=== PATIENT | male | born 1960 | race Caucasian/White ===

== ENCOUNTER 2019-08-30 19:30 | Emergency (ER) | payer OTHER ==
--- OUTSIDE RECORDS SUMMARY | 2019-08-30 19:33 | XMS REPORT ---
:1960 Author Organization [facility] Address [address] [place] [address] Care Team Providers Name Role Phone DR ALIYAH PACKER Unavailable Unavailable Problems This patient has no known problems. Allergies, Adverse Reactions, Alerts This patient has no known allergies or adverse reactions. Medications This patient has no known medications. Encounters Start End Encounter Admission Attending Care Care Encounter Date/Time Date/Time Type Type Clinicians Facility Department ID 2017-12-10 2017-12-11 Outpatient C BIRDIE C SURG [id number] 07:47:00 12:58:00 ALIYAH Results Test Description Test Time Test Comments Text Results Atomic Results Result Comments BASIC METABOLIC PANEL 2017-12-11 08:26:00 Test Item Value Reference Range Comments GLUCOSE (test code=06D) 171 mg/dL 75-100 SODIUM (test code=01A) 137 mmol/L 136-145 POTASSIUM (test code=01B) 4.1 mmol/L 3.6-5.1 CHLORIDE (test code=04A) 104 mmol/L 98-107 CO2 (test code=02A) 27 mmol/L 22-32 ANION GAP (test code=ANG) 10.1 mmol/L BUN (test code=05D) 14 mg/dL 7-18 CREATININE (test code=03E) 1.0 mg/dL 0.7-1.3 BUN/CREA (test code=BCR) 14 12-20 CALCIUM (test code=09D) 9.4 mg/dL 8.3-9.5 CBC (INCLUDES AUTOMATED DIFFERENTIAL)2017-12-11 08:13:00 Test Item Value Reference Range Comments WBC (test code=WBC) 15.1 10\S\3/uL 4.5-11.0 RBC (test code=RBC) 5.16 10\S\6/uL 4.20-5.60 HGB (test code=HBG) 14.5 g/dL 14.0-18.0 HCT (test code=HCT) 43.5 % 35.0-46.0 MCV (test code=MCV) 84.3 fL 80.0-94.0 MCH (test code=MCH) 28.1 pg 27.0-31.0 MCHC (test code=MCHC) 33.3 g/dL 32.0-36.0 RDW (test code=RDW) 13.2 % 11.5-14.5 PLT (test code=PLT) 251 10\S\3/uL 130-400 MPV (test code=MPV) 11.8 fL 9.4-12.4 NEUTROP # (test code=NE#) 13.6 10\S\3/uL 2.0-8.0 LYMPH # (test code=LY#) 0.6 10\S\3/uL 1.2-4.0 MONOCYTE # (test code=MO#) 0.8 10\S\3/uL 0.0-1.1 EOSINOPH # (test code=EO#) 0.0 10\S\3/uL 0.0-0.7 BASOPHIL # (test code=BA#) 0.0 10\S\3/uL 0.0-0.3 IG # (test code=IG#) 0.07 10\S\3/uL 0.00-0.06 NRBC # (test code=NRBC#) 0.00 10\S\3/uL 0.00-0.01 NEUTROPH % (test code=NE%) 90.0 % 35.0-73.0 LYMPH % (test code=LY%) 4.2 % 20.0-55.0 MONO % (test code=MO%) 5.2 % 2.5-10.0 EOSINOPH % (test code=EO%) 0.0 % 0.0-5.0 BASOPHIL % (test code=BA%) 0.1 % 0.0-2.0 IG % (test code=IG%) 0.5 % 0.0-0.8 NRBC% (test code=NRBC%) 0.0 % 0.0-0.2 MANDIFF (test code=MDIFF) NO NO RBC MORPH (test code=RBCMOR) NORMAL XR C-ARM>1HR W IMAGES*HSE*2017-12-10 11:59:11Clinical history: Neck pain unspecified.Location: D4.Findings: 6 spot fluoroscopic intraoperative images are submitted. The imagesshow ACDF at C4-C7. Please refer to the operative report. A total of 9 secondsintraoperative fluoroscopy was utilized.Impression: Intraoperative fluoroscopy.COMPREHENSIVE METABOLIC [id number] 17:22:00 Test Item Value Reference Range Comments GLUCOSE (test code=06D) 96 mg/dL 75-100 SODIUM (test code=01A) 139 mmol/L 136-145 POTASSIUM (test code=01B) 4.0 mmol/L 3.6-5.1 CHLORIDE (test code=04A) 107 mmol/L 98-107 CO2 (test code=02A) 27 mmol/L 22-32 ANION GAP (test code=ANG) 9.0 mmol/L BUN (test code=05D) 15 mg/dL 7-18 CREATININE (test code=03E) 1.0 mg/dL 0.7-1.3 BUN/CREA (test code=BCR) 15 12-20 CALCIUM (test code=09D) 8.7 mg/dL 8.3-9.5 BILI TOTAL (test code=11A) 1.4 mg/dL 0.2-1.0 PROTEIN (test code=07D) 7.8 g/dL 6.4-8.2 ALBUMIN (test code=08D) 4.0 g/dL 3.5-4.8 GLOBULIN (test code=GLB) 3.8 g/dL 1.5-3.8 ALB/GLOB (test code=AGRR) 1.1 1.0-2.6 ALK PHOS (test code=35A) 57 IU/L 42-121 AST (test code=30A) 18 IU/L <=42 ALT (test code=31A) 26 IU/L <=78 PRO TIME AND [id number] 17:13:00 Test Item Value Reference Range Comments PT (test code=TT) 11.5 s 9.8-13.6 INR (test code=INR) 1.0 INRH (test code=INRH) SUGGESTED THERAPEUTIC RANGE FOR INR: 2.5 - 3.5 For Patients with Prosthetic Valves or Patients with recurrent Thromboembolic Events 2.0 - 3.0 For Most Other Applications PTT (test code=PTT) 29.2 s 20.2-38.0 PTTH (test code=PTTH) To monitor the effectiveness of heparin, we offer the Anti-Xa (Heparin Assay). It can be used for either unfractionated or LMW Heparin. Order Code is ANTI-XA CBC (INCLUDES AUTOMATED DIFFERENTIAL)2017-12-05 17:11:00 Test Item Value Reference Range Comments WBC (test code=WBC) 6.8 10\S\3/uL 4.5-11.0 RBC (test code=RBC) 5.22 10\S\6/uL 4.20-5.60 HGB (test code=HBG) 14.6 g/dL 14.0-18.0 HCT (test code=HCT) 44.0 % 35.0-46.0 MCV (test code=MCV) 84.3 fL 80.0-94.0 MCH (test code=MCH) 28.0 pg 27.0-31.0 MCHC (test code=MCHC) 33.2 g/dL 32.0-36.0 RDW (test code=RDW) 13.2 % 11.5-14.5 PLT (test code=PLT) 238 10\S\3/uL 130-400 MPV (test code=MPV) 11.3 fL 9.4-12.4 NEUTROP # (test code=NE#) 4.2 10\S\3/uL 2.0-8.0 LYMPH # (test code=LY#) 1.6 10\S\3/uL 1.2-4.0 MONOCYTE # (test code=MO#) 0.8 10\S\3/uL 0.0-1.1 EOSINOPH # (test code=EO#) 0.1 10\S\3/uL 0.0-0.7 BASOPHIL # (test code=BA#) 0.0 10\S\3/uL 0.0-0.3 IG # (test code=IG#) 0.02 10\S\3/uL 0.00-0.06 NRBC # (test code=NRBC#) 0.00 10\S\3/uL 0.00-0.01 NEUTROPH % (test code=NE%) 61.8 % 35.0-73.0 LYMPH % (test code=LY%) 24.1 % 20.0-55.0 MONO % (test code=MO%) 11.7 % 2.5-10.0 EOSINOPH % (test code=EO%) 1.5 % 0.0-5.0 BASOPHIL % (test code=BA%) 0.6 % 0.0-2.0 IG % (test code=IG%) 0.3 % 0.0-0.8 NRBC% (test code=NRBC%) 0.0 % 0.0-0.2 MANDIFF (test code=MDIFF) NO NO RBC MORPH (test code=RBCMOR) NORMAL
--- NOTE | 2019-08-30 20:40 | ER ---
Nurse's Notes [facility] Name: Danilo Noguera Jr Age: 59 yrs Sex: Male : 1960 Arrival Date: 08/30/2019 Time: 19:33 Bed 16 Private MD: Diagnosis: Other chronic pain Presentation: 08/30 19:36 Presenting complaint: Patient states: "I have a pinched nerve they diagnosed me with, aj1 Im going to Dr. Kaye, Im taking hydrocodone from him but the pills aren't helping me. Saturday I pulled something and I'm having a hard time stranding up, and my leg feels like Im standing on a nail on the time, my leg feels like its on fire all the time. Transition of care: patient was not received from another setting of care. Onset of symptoms was August 2019. Risk Assessment: Do you want to hurt yourself or someone else? Patient reports no desire to harm self or others. Initial Sepsis Screen: Does the patient meet any 2 criteria? No. Patient's initial sepsis screen is negative. Does the patient have a suspected source of infection? No. Patient's initial sepsis screen is negative. Care prior to arrival: None. 19:36 Method Of Arrival: Ambulatory aj1 19:36 Acuity: CHRISTA 3 aj1 Triage Assessment: 19:38 General: Appears in no apparent distress. comfortable, Behavior is calm, cooperative, aj1 appropriate for age. Pain: Pain currently is 9 out of 10 on a pain scale. Neuro: Level of Consciousness is awake, alert, obeys commands. Cardiovascular: Patient's skin is warm and dry. Respiratory: Airway is patent Respiratory effort is even, unlabored, Respiratory pattern is regular, symmetrical. Musculoskeletal: Range of motion: intact in all extremities. Historical: - Allergies: 19:38 No Known Allergies; aj1 - Home Meds: 19:38 Hydrocodone-Acetaminophen Oral [Active]; Lisinopril Oral [Active]; meloxicam oral oral aj1 [Active]; - PMHx: 19:38 Asbestos inhalation exposure; Hypertension; pinched nerve; aj1 - Immunization history:: Flu vaccine is up to date. - Coronavirus screen:: The patient has NOT traveled to [place], [place], or [place] in the past 14 days. - Social history:: Smoking status: Patient/guardian denies using tobacco. - Ebola Screening: : Patient denies travel to an Ebola-affected area in the 21 days before illness onset. Screenin:00 Abuse screen: Denies threats or abuse. Nutritional screening: No deficits noted. vc Tuberculosis screening: No symptoms or risk factors identified. Fall Risk None identified. Assessment: 20:00 General: Appears in no apparent distress. uncomfortable, Behavior is calm, cooperative, vc appropriate for age. Pain: Complains of pain in RIGHT MIDDLE OF FOOT, Pain radiates to right leg. Neuro: Level of Consciousness is awake, alert, obeys commands, Oriented to person, place, time, situation, Appropriate for age. Cardiovascular: Patient's skin is warm and dry. Respiratory: Respiratory effort is even, unlabored, Respiratory pattern is regular, symmetrical. GI: No signs and/or symptoms were reported involving the gastrointestinal system. : No signs and/or symptoms were reported regarding the genitourinary system. EENT: No signs and/or symptoms were reported regarding the EENT system. Derm: Skin temperature is warm. Musculoskeletal: Range of motion: intact in all extremities. 21:00 Reassessment: Patient and/or family updated on plan of care and expected duration. Pain vc level reassessed. Patient is alert, oriented x 3, equal unlabored respirations, skin warm/dry/pink. PATIENT WAITING FOR RIDE HOME. 21:50 Reassessment: Patient and/or family updated on plan of care and expected duration. Pain vc level reassessed. Patient is alert, oriented x 3, equal unlabored respirations, skin warm/dry/pink. PATIENT STILL WAITING FOR RIDE HOME Patient states feeling better. Patient states symptoms have improved. Vital Signs: 19:38 BP 140 / 100; Pulse 80; Resp 18; Temp 97.7; Pulse Ox 97% on R/A; Weight 97.52 kg (R); aj1 Height 5 ft. 9 in. (175.26 cm) (R); Pain 9/10; 20:30 BP 145 / 98; Pulse 85; Pulse Ox 98% on R/A; vc 21:30 BP 142 / 99; Pulse 83; Pulse Ox 98% on R/A; vc 19:38 Body Mass Index 31.75 (97.52 kg, 175.26 cm) aj1 ED Course: 19:33 Patient arrived in ED. cf2 19:37 Triage completed. aj1 19:38 Arm band placed on Patient placed in an exam room. aj1 19:46 Jesica Arevalo, RN is Primary Nurse. vc 19:58 Junior Ku MD is Attending Physician. tw4 20:00 Patient has correct armband on for positive identification. Bed in low position. Call vc light in reach. 20:00 Pulse ox on. NIBP on. vc 21:00 No provider procedures requiring assistance completed. vc 21:00 Patient did not have IV access during this emergency room visit. vc Administered Medications: 20:54 Drug: traMADol 50 mg {Note: RASS 0.} Route: PO; ea 21:30 Follow up: Response: No adverse reaction; Pain is decreased vc 20:55 Drug: TORadol 60 mg Route: IM; Site: right gluteus; ea 21:30 Follow up: Response: No adverse reaction vc Outcome: 20:40 Discharge ordered by . tw4 22:15 Discharged to home ambulatory, with friend. vc 22:15 Condition: good 22:15 Discharge instructions given to patient, Instructed on discharge instructions, follow up and referral plans. medication usage, Demonstrated understanding of instructions, follow-up care, medications, Prescriptions given X 1. 22:16 Patient left the ED. vc Signatures: Erin Merino, RN RN aj1 Kia Cadet, RN RN Junior Marquez MD MD 4 Cabrera Maher 2 Jesica Arevalo, RN RN vc Corrections: (The following items were deleted from the chart) 23:34 21:00 Reassessment: PATIENT WAITING FOR RIDE HOME. vc vc 23:34 21:50 Reassessment: PATIENT STILL WAITING FOR RIDE HOME vc vc
[2019-08-30] MEDS ORDERED: KETOROLAC 30 MG/ML INJ ONE (20:44)
[2019-08-30] MEDS ORDERED: TRAMADOL HCL 50 MG TAB ONE (20:45)
--- NOTE | 2019-08-30 22:17 | EDPHYS ---
Physician Documentation [facility] Name: Danilo Noguera Jr Age: 59 yrs Sex: Male : 1960 Arrival Date: 08/30/2019 Time: 19:33 Bed 16 Private MD: ED Physician Junior Ku HPI: 08/30 21:59 This 59 yrs old Male presents to ER via Ambulatory with complaints of Back tw4 Pain, Foot Pain, Leg Pain. 21:59 The patient presents with pain that is acute. The symptoms are located in the right low tw4 back. Onset: The symptoms/episode began/occurred 1 month(s) ago. The pain radiates to the right hamstring. Associated signs and symptoms: The patient has no apparent associated signs or symptoms. The problem was sustained when bending over, from twisting. Modifying factors: The patient symptoms are alleviated by rest, the patient symptoms are aggravated by any movement. Severity of symptoms: At their worst the symptoms were moderate, in the emergency department the symptoms are unchanged. The patient has experienced similar episodes in the past, chronically. Historical: - Allergies: 19:38 No Known Allergies; aj1 - Home Meds: 19:38 Hydrocodone-Acetaminophen Oral [Active]; Lisinopril Oral [Active]; meloxicam oral oral aj1 [Active]; - PMHx: 19:38 Asbestos inhalation exposure; Hypertension; pinched nerve; aj1 - Immunization history:: Flu vaccine is up to date. - Coronavirus screen:: The patient has NOT traveled to [place], [place], or [place] in the past 14 days. - Social history:: Smoking status: Patient/guardian denies using tobacco. - Ebola Screening: : Patient denies travel to an Ebola-affected area in the 21 days before illness onset. ROS: 21:59 Constitutional: Negative for fever, chills, and weight loss, Eyes: Negative for injury, tw4 pain, redness, and discharge, Cardiovascular: Negative for chest pain, palpitations, and edema, Respiratory: Negative for shortness of breath, cough, wheezing, and pleuritic chest pain, Abdomen/GI: Negative for abdominal pain, nausea, vomiting, diarrhea, and constipation, Back: Negative for injury and pain, MS/Extremity: Negative for injury and deformity, Skin: Negative for injury, rash, and discoloration. Exam: 21:59 Constitutional: This is a well developed, well nourished patient who is awake, alert, tw4 and in no acute distress. Head/Face: Normocephalic, atraumatic. Cardiovascular: Regular rate and rhythm with a normal S1 and S2. No gallops, murmurs, or rubs. Normal PMI, no JVD. No pulse deficits. Respiratory: Lungs have equal breath sounds bilaterally, clear to auscultation and percussion. No rales, rhonchi or wheezes noted. No increased work of breathing, no retractions or nasal flaring. Abdomen/GI: Soft, non-tender, with normal bowel sounds. No distension or tympany. No guarding or rebound. No evidence of tenderness throughout. Back: No spinal tenderness. No costovertebral tenderness. Full range of motion. MS/ Extremity: Pulses equal, no cyanosis. Neurovascular intact. Full, normal range of motion. Neuro: Awake and alert, GCS 15, oriented to person, place, time, and situation. Cranial nerves II-XII grossly intact. Motor strength 5/5 in all extremities. Sensory grossly intact. Cerebellar exam normal. Normal gait. Vital Signs: 19:38 BP 140 / 100; Pulse 80; Resp 18; Temp 97.7; Pulse Ox 97% on R/A; Weight 97.52 kg (R); aj1 Height 5 ft. 9 in. (175.26 cm) (R); Pain 9/10; 20:30 BP 145 / 98; Pulse 85; Pulse Ox 98% on R/A; vc 21:30 BP 142 / 99; Pulse 83; Pulse Ox 98% on R/A; vc 19:38 Body Mass Index 31.75 (97.52 kg, 175.26 cm) aj MDM: 19:58 Patient medically screened. tw4 Administered Medications: 20:54 Drug: traMADol 50 mg {Note: RASS 0.} Route: PO; ea 21:30 Follow up: Response: No adverse reaction; Pain is decreased vc 20:55 Drug: TORadol 60 mg Route: IM; Site: right gluteus; ea 21:30 Follow up: Response: No adverse reaction vc Disposition: 08/30/19 20:40 Discharged to Home. Impression: Other chronic pain. - Condition is Stable. - Discharge Instructions: Chronic Pain. - Prescriptions for Tramadol 50 mg Oral Tablet - take 1 tablet by ORAL route every 8 hours as needed; 12 tablet. - Medication Reconciliation Form, Thank You Letter, Antibiotic Education, Prescription Opioid Use form. - Follow up: Private Physician; When: Upon discharge from the Emergency Department; Reason: Recheck today's complaints, Continuance of care, Re-evaluation by your physician. - Problem is an ongoing problem. - Symptoms are unchanged. Signatures: Erin Merino RN RN aj1 Kia Cadet RN RN ea Wadley, Terrence, MD MD tw4 Jesica Arevalo RN RN vc Corrections: (The following items were deleted from the chart) 22:16 20:40 08/30/2019 20:40 Discharged to Home. Impression: Other chronic pain. Condition is vc Stable. Forms are Medication Reconciliation Form, Thank You Letter, Antibiotic Education, Prescription Opioid Use. Follow up: Private Physician; When: Upon discharge from the Emergency Department; Reason: Recheck today's complaints, Continuance of care, Re-evaluation by your physician. Problem is an ongoing problem. Symptoms are unchanged. tw4
[2019-08-30 22:24] VITALS: BP 140/100; TEMP 97.7; O2SAT 97
== END 2019-08-30 22:16 | disposition home or self-care (01) ==
LOC: ER 19:30
DX: G89.29 Other chronic pain (principal); I10 Essential (primary) hypertension
CPT/HCPCS: 96372; 99283

== ENCOUNTER 2023-05-05 17:49 | Emergency (ER) | payer OTHER ==
--- OUTSIDE RECORDS SUMMARY | 2023-05-05 17:53 | XMS REPORT | Continuity of Care Document ---
:1960 Author Organization [facility] t Address [address] [facility] [address] [place] [address] Care Team Providers Name Role Phone Pcp, Patient Does Not Have A Primary Care Physician +1-000-0 00-0000 MO LOOMIS Attending Clinician Unavailable RADIOLOGY Attending Clinician Unavailable Radiology Attending Clinician Unavailable Doctor Unassigned, [place] Attending Clinician Unavailable Team, [facility] Attending Clinician Unavailadrian Resendez MD, Kobe Attending Clinician ZAHRA YOUNGER Attending Clinician Unavailable ZAHRA YOUNGER Attending Clinician Unavailable Mo Loomis MD K.HHarsah Attending Clinician 2, [facility] Attending Clinician Unavailable DICK CARVAJAL Attending Clinician Unavailable Pob, [facility] Main Attending Clinician Unavailable BRETT SHETH Attending Clinician Unavailable Oscar Plunkett MD Attending Clinician OSCAR PLUNKETT Attending Clinician Unavailable DAVID DRUMMOND Attending Clinician Unavailable DR ALIYAH PACKER Attending Clinician Unavailable PERCY HAHN Admitting Clinician Unavailable ZAHRA YOUNGER Admitting Clinician Unavailable OSCAR PLUNKETT Admitting Clinician Unavailable DR ALIYAH PACKER Admitting Clinician Unavailable Payers Payer Name Policy Type Policy Number Effective Date Expiration Date [place] [facility] [place] A [id number] 2018 \T\ B 00:00:00 Problems Condition Condition Condition Status Onset Resolution Last Treating Co mments Source Name Details Category Date Date Treatment Clinician Date History of History of Disease Active U nivers fusion of fusion of 1-19 ity of cervical cervical 00:00: [place] spine spine 00 Medical Branch Chronic Chronic Disease Active Univers pain pain 1-19 ity of 00:00: [address] Branch Neuropathi Neuropathi Disease Active U nivers c pain c pain 6-10 ity of 00:00: [address] Branch Incontinen Incontinen Disease Active M ethodi ce of ce of 11-23 st bowel bowel 00:00: Hospita 00 l Urinary Urinary Disease Active Methodi frequency frequency 05 st 00:00: Hospita 00 l Post-concu Post-concu Disease Active M ethodi ssion ssion [address] [facility] headache headache 00:00: Hospit a 00 l Neck pain Neck pain Disease Active [facility] 3-08 st 00:00: Hospita 00 l Bilateral Bilateral Disease Active [facility] low back low back [address] [facility] pain with pain with 00:00: Hosp abhinav left-sided left-sided 00 l sciatica sciatica Anxiety Anxiety Disease Active [facility] 3-08 st 00:00: Hospita 00 l Lumbar Lumbar Disease Active Methodi radiculopa radiculopa 3-08 st thy thy 00:00: Hospita 00 l Essential Essential Disease Active [facility] hypertensi hypertensi 3-08 st on on 00:00: Hospita 00 l Insomnia Insomnia Disease Active Metho di [address] st 00:00: Hospita 00 l Essential Essential Disease Active Uni vers hypertensi hypertensi 1-31 it y of on on 00:00: [address] Allergies, Adverse Reactions, Alerts Allergy Allergy Status Severity Reaction(s) Onset Inactive Treating Comm ents Source Name Type Date Date Clinician NO KNOWN Drug Active Univers ALLERGIE Class ity of S [facility] Family History Family Member Diagnosis Comments Start Date Stop Date Source Natural father [facility] Natural mother Diabetes [facility] Natural mother Stroke [facility] Social History Social Habit Start Date Stop Date Quantity Comments Source History of tobacco Cigarette Smoker [facility] Sexual orientation [facility] Exposure to 2022-09-28 2022-10-08 Not sure University of SARS-CoV-2 (event) 00:00:00 13:57:00 [facility] Tobacco use and 2022-04-19 2022-04-19 Smokeless [facility] exposure 00:00:00 00:00:00 tobacco non-user Hospital Alcohol intake 2022-04-19 2022-04-19 Current [facility] 00:00:00 00:00:00 non-drinker of Hospital alcohol (finding) History of Social 2022-04-19 2022-04-[address] function 00:00:00 00:00:00 Hospital Sex Assigned At [birth year] [facility] 00:00:00 00:00:00 Hospital Smoking Status Start Date Stop Date Source Ex-smoker 2022-08-09 00:00:00 2022-08-09 00:00:00 Universi ty of [facility] Never smoked tobacco [facility] Medications Ordered Filled Start Stop Current Ordering Indication Dosage Frequency Signature Comments Components Source Medication Medication Date Date Medication? Clinician (SIG) Name Name rizatriptan Yes [id number] TAKE 1 [facility] (MAXALT) 10 9-[address] MG tablet 00:00: MOUTH ONCE Ho spita 00 DAILY l NEEDED FOR MIGRAINE HEADACHE rizatriptan 2022- No [id number] TAKE 1 [facility] (MAXALT) 10 8- 09-[address] MG tablet 00:00: 00:00 MOUTH ONCE H ospita 00 :00 DAILY l NEEDED FOR MIGRAINE HEADACHE rizatriptan 2022- No [id number] TAKE 1 [facility] (MAXALT) 10 01-06- TABLET BY st MG tablet 00:00: 00:00 MOUTH ONCE H ospita 00 :00 DAILY l NEEDED FOR MIGRAINE HEADACHE rizatriptan 2022- No [id number] TAKE 1 [facility] (MAXALT) 10 12-[address] MG tablet 00:00: 00:00 MOUTH ONCE H ospita 00 :00 DAILY l NEEDED FOR MIGRAINE HEADACHE atorvastati Yes [id number] 20mg Take 1 Univers n 20 mg 3-20 tablet by ity of tablet 00:00: mouth at [place] 00 bedtime. Medical Branch lisinopriL 2023-0 Yes [id number] 20mg Take 1 U nivers 20 mg 3-20 tablet by ity of tablet 00:00: mouth in [place] 00 the Medical morning Branch and 1 tablet in the evening. atorvastati 2022-0 Yes [id number] 20mg Take 1 Univers n 20 mg 3-20 tablet by ity of tablet 00:00: mouth at [place] [address] bedtime. Medical Branch lisinopriL 2022-0 Yes [id number] 20mg Take 1 U nivers 20 mg 3-20 tablet by ity of tablet 00:00: mouth in [place] 00 the Medical morning Branch and 1 tablet in the evening. atorvastati 2022-0 Yes [id number] 20mg Take 1 Univers n 20 mg 3-20 tablet by ity of tablet 00:00: mouth at [place] [address] bedtime. Medical Branch lisinopriL 2022-0 Yes [id number] 20mg Take 1 U nivers 20 mg 3-20 tablet by ity of tablet 00:00: mouth in [place] 00 the Medical morning Branch and 1 tablet in the evening. atorvastati 2022-0 Yes [id number] 20mg Take 1 Univers n 20 mg 3-20 tablet by ity of tablet 00:00: mouth at [place] [address] bedtime. Medical Branch lisinopriL 2022-0 Yes [id number] 20mg Take 1 U nivers 20 mg 3-20 tablet by ity of tablet 00:00: mouth in [place] 00 the Medical morning Branch and 1 tablet in the evening. atorvastati 2022-0 Yes [id number] 20mg Take 1 Univers n 20 mg 3-20 tablet by ity of tablet 00:00: mouth at [place] [address] bedtime. Medical Branch lisinopriL 2022-0 Yes [id number] 20mg Take 1 U nivers 20 mg 3-20 tablet by ity of tablet 00:00: mouth in [place] 00 the Medical morning Branch and 1 tablet in the evening. atorvastati 2022-0 Yes [id number] 20mg Take 1 Univers n 20 mg 3-20 tablet by ity of tablet 00:00: mouth at [place] [address] bedtime. Medical Branch lisinopriL 2022-0 Yes [id number] 20mg Take 1 U nivers 20 mg 3-20 tablet by ity of tablet 00:00: mouth in [place] 00 the Medical morning Branch and 1 tablet in the evening. atorvastati 2022-0 Yes [id number] 20mg Take 1 Univers n 20 mg 3-20 tablet by ity of tablet 00:00: mouth at [place] [address] bedtime. Medical Branch lisinopriL 2022-0 Yes [id number] 20mg Take 1 U nivers 20 mg 3-20 tablet by ity of tablet 00:00: mouth in [place] [address] the Medical morning Branch and 1 tablet in the evening. atorvastati 2022-0 Yes [id number] 20mg Take 1 Univers n 20 mg 3-20 tablet by ity of tablet 00:00: mouth at [place] [address] bedtime. Medical Branch lisinopriL 2022-0 Yes [id number] 20mg Take 1 U nivers 20 mg 3-20 tablet by ity of tablet 00:00: mouth in [place] [address] the Medical morning Branch and 1 tablet in the evening. ATORVASTATI 2022-0 Yes [id number] 20mg TAKE 1 Univers N 20 mg 2-09 TABLET BY ity of tablet 00:00: MOUTH AT [place] 00 BEDTIME Medical Branch ATORVASTATI 2022-0 Yes [id number] 20mg TAKE 1 Univers N 20 mg 2-09 TABLET BY ity of tablet 00:00: MOUTH AT [place] 00 BEDTIME Medical Branch ATORVASTATI 2022-0 Yes [id number] 20mg TAKE 1 Univers N 20 mg 2-09 TABLET BY ity of tablet 00:00: MOUTH AT [place] [facility] ATORVASTATI 2022-0 3- No [id number] 20mg TAKE 1 Univers N 20 mg 2-09 03-20 TABLET BY ity of tablet 00:00: 00:00 MOUTH AT [place] 00 :00 BEDTIME Medical Branch ATORVASTATI 2022-0 3- No [id number] 20mg TAKE 1 Univers N 20 mg 2-09 03-20 TABLET BY ity of tablet 00:00: 00:00 MOUTH AT [place] 00 :00 BEDTIME Medical Branch lisinopriL 2021-0 2- No lisinopril Univers 20 mg 9-12 09-12 20 mg ity of tablet 15:35: 00:00 tablet [place] 49 :00 Medical Branch atorvastati 2021-0 Yes [id number] 20mg Take 1 Univers n 20 mg 9-12 tablet by ity of tablet 00:00: mouth at [place] [address] bedtime. Medical Branch lisinopriL 2-0 Yes [id number] 20mg Take 1 Univers 20 mg 9-12 tablet by ity of tablet 00:00: mouth in [place] 00 the Medical morning Branch and 1 tablet in the evening. atorvastati 2-0 Yes [id number] 20mg Take 1 Univers n 20 mg 9-12 tablet by ity of tablet 00:00: mouth at [place] [address] bedtime. Medical Branch lisinopriL 2021-0 Yes [id number] 20mg Take 1 Univers 20 mg 9-12 tablet by ity of tablet 00:00: mouth in [place] 00 the Medical morning Branch and 1 tablet in the evening. atorvastati 2-0 Yes [id number] 20mg Take 1 Univers n 20 mg 9-12 tablet by ity of tablet 00:00: mouth at [place] [address] bedtime. Medical Branch lisinopriL 2021-0 Yes [id number] 20mg Take 1 Univers 20 mg 9-12 tablet by ity of tablet 00:00: mouth in [place] 00 the Medical morning Branch and 1 tablet in the evening. atorvastati 2021-0 Yes [id number] 20mg Take 1 Univers n 20 mg 9-12 tablet by ity of tablet 00:00: mouth at [place] [address] bedtime. Medical Branch lisinopriL 2021-0 Yes [id number] 20mg Take 1 Univers 20 mg 9-12 tablet by ity of tablet 00:00: mouth in [place] 00 the Medical morning Branch and 1 tablet in the evening. atorvastati 2-0 Yes [id number] 20mg Take 1 Univers n 20 mg 9-12 tablet by ity of tablet 00:00: mouth at [place] [address] bedtime. Medical Branch lisinopriL 2-0 Yes [id number] 20mg Take 1 Univers 20 mg 9-12 tablet by ity of tablet 00:00: mouth in [place] 00 the Medical morning Branch and 1 tablet in the evening. lisinopriL 2022-0 Yes [id number] 20mg Take 1 Univers 20 mg 9-12 tablet by ity of tablet 00:00: mouth in [place] 00 the Medical morning Branch and 1 tablet in the evening. lisinopriL 2022-0 Yes [id number] 20mg Take 1 Univers 20 mg 9-12 tablet by ity of tablet 00:00: mouth in [place] 00 the Medical morning Branch and 1 tablet in the evening. lisinopriL Yes [id number] 20mg Take 1 Univers 20 mg 9-12 tablet by ity of tablet 00:00: mouth in [place] 00 the Medical morning Branch and 1 tablet in the evening. lisinopriL 3- No [id number] 20mg Take 1 Univers 20 mg 9-12 03-20 tablet by ity of tablet 00:00: 00:00 mouth in [place] 00 :00 the Medical morning Branch and 1 tablet in the evening. lisinopriL 2022- No [id number] 20mg Take 1 Univers 20 mg 9-12 03-20 tablet by ity of tablet 00:00: 00:00 mouth in [place] 00 :00 the Medical morning Branch and 1 tablet in the evening. atorvastati 2022- No [id number] 20mg Take 1 Univers n 20 mg 9-12 02-09 tablet by ity of tablet 00:00: 00:00 mouth at [place] 00 :00 bedtime. Medical Branch rizatriptan 2022- No [id number] 10mg Q24H Take 1 [facility] (MAXALT) 10 5-11 05-22 tablet (10 s t MG tablet 00:00: 00:00 mg total) Ho spita 00 :00 by mouth l daily as needed for migraine. atorvastati 2- No [id number] 20mg Take 1 Univers n 20 mg 5-05 09-12 tablet by ity of tablet 00:00: 00:00 mouth at [place] 00 :00 bedtime. Medical Branch gabapentin 2021-0 Yes TAKE 2 Unive rs 300 mg 2-15 CAPSULES ity of capsule 00:00: BY MOUTH [place] [address] THREE Medical TIMES Branch DAILY gabapentin 2021-0 Yes TAKE 2 Unive rs 300 mg 2-15 CAPSULES ity of capsule 00:00: BY MOUTH [address] Medical TIMES [place] DAILY gabapentin 2021-0 Yes TAKE 2 Unive rs 300 mg 2-15 CAPSULES ity of capsule 00:00: BY MOUTH [address] TIMES [place] DAILY gabapentin 2021-0 Yes TAKE 2 Unive rs 300 mg 2-15 CAPSULES ity of capsule 00:00: BY MOUTH [address] Medical TIMES Branch DAILY gabapentin 2022-0 Yes TAKE 2 Unive rs 300 mg 2-15 CAPSULES ity of capsule 00:00: BY [facility] Medical TIMES Branch DAILY gabapentin 2022-0 Yes TAKE 2 Unive rs 300 mg 2-15 CAPSULES ity of capsule 00:00: BY [facility] Medical TIMES Branch DAILY gabapentin 2022-0 Yes TAKE 2 Unive rs 300 mg 2-15 CAPSULES ity of capsule 00:00: BY [facility] Medical TIMES Branch DAILY gabapentin 2022-0 Yes TAKE 2 Unive rs 300 mg 2-15 CAPSULES ity of capsule 00:00: BY [facility] Medical TIMES Branch DAILY gabapentin 2022-0 Yes TAKE 2 Unive rs 300 mg 2-15 CAPSULES ity of capsule 00:00: BY [facility] Medical TIMES Branch DAILY gabapentin 2022-0 Yes TAKE 2 Unive rs 300 mg 2-15 CAPSULES ity of capsule 00:00: BY [facility] Medical TIMES Branch DAILY gabapentin 2022-0 Yes TAKE 2 Unive rs 300 mg 2-15 CAPSULES ity of capsule 00:00: BY [facility] Medical TIMES Branch DAILY gabapentin 2022-0 Yes TAKE 2 Unive rs 300 mg 2-15 CAPSULES ity of capsule 00:00: BY [facility] Medical TIMES Branch DAILY gabapentin 2022-0 Yes TAKE 2 Unive rs 300 mg 2-15 CAPSULES ity of capsule 00:00: BY [facility] Medical TIMES Branch DAILY gabapentin 2022-0 Yes TAKE 2 Unive rs 300 mg 2-15 CAPSULES ity of capsule 00:00: BY [facility] Medical TIMES Branch DAILY gabapentin 2022-0 Yes TAKE 2 Unive rs 300 mg 2-15 CAPSULES ity of capsule 00:00: BY [facility] Medical TIMES Branch DAILY gabapentin 2022-0 Yes TAKE 2 Unive rs 300 mg 2-15 CAPSULES ity of capsule 00:00: BY [facility] Medical TIMES Branch DAILY gabapentin 2022-0 Yes TAKE 2 Unive rs 300 mg 2-15 CAPSULES ity of capsule 00:00: BY [facility] Medical TIMES Branch DAILY gabapentin 2022-0 Yes TAKE 2 Unive rs 300 mg 2-15 CAPSULES ity of capsule 00:00: BY [facility] Medical TIMES Branch DAILY gabapentin 2022-0 2023- No [id number] 600mg [id number] Take 2 [facility] (NEURONTIN) 2-15 02-[id number] 300 mg 00:00: 05:59 3D (600 mg Hospita capsule 00 :00 total) by l mouth 3 (three) times a day. HYDROcodone 2021-0 Yes TAKE 1 Univ ers -acetaminop 2-13 TABLET ity of hen 5-325 00:00: EVERY DAY José Miguel as mg tablet 00 BY ORAL Medical ROUTE Branch NEEDED FOR 28 DAYS. HYDROcodone 2021-0 Yes TAKE 1 Univ ers -acetaminop 2-13 TABLET ity of hen 5-325 00:00: EVERY DAY José Miguel as mg tablet 00 BY ORAL Medical ROUTE Branch NEEDED FOR 28 DAYS. HYDROcodone 2021-0 Yes TAKE 1 Univ ers -acetaminop 2-13 TABLET ity of hen 5-325 00:00: EVERY DAY José [place] as mg tablet 00 BY ORAL Medical ROUTE Branch NEEDED FOR 28 DAYS. HYDROcodone 2021-0 Yes TAKE 1 Univ ers -acetaminop 2-13 TABLET ity of hen 5-325 00:00: EVERY DAY José Miguel as mg tablet 00 BY ORAL Medical ROUTE Branch NEEDED FOR 28 DAYS. HYDROcodone 2021-0 Yes TAKE 1 Univ ers -acetaminop 2-13 TABLET ity of hen 5-325 00:00: EVERY DAY José [place] as mg tablet 00 BY ORAL Medical ROUTE Branch NEEDED FOR 28 DAYS. HYDROcodone 2021-0 Yes TAKE 1 Univ ers -acetaminop 2-13 TABLET ity of hen 5-325 00:00: EVERY DAY José Miguel as mg tablet 00 BY ORAL Medical ROUTE Branch NEEDED FOR 28 DAYS. HYDROcodone 2021-0 Yes TAKE 1 Univ ers -acetaminop 2-13 TABLET ity of hen 5-325 00:00: EVERY DAY José Miguel as mg tablet 00 BY ORAL Medical ROUTE Branch NEEDED FOR 28 DAYS. HYDROcodone 2021-0 Yes TAKE 1 Univ ers -acetaminop 2-13 TABLET ity of hen 5-325 00:00: EVERY DAY José Miguel as mg tablet 00 BY ORAL Medical ROUTE Branch NEEDED FOR 28 DAYS. HYDROcodone 2021-0 Yes TAKE 1 Univ ers -acetaminop 2-13 TABLET ity of hen 5-325 00:00: EVERY DAY José Miguel as mg tablet 00 BY ORAL Medical ROUTE Branch NEEDED FOR 28 DAYS. HYDROcodone 2021-0 Yes TAKE 1 Univ ers -acetaminop 2-13 TABLET ity of hen 5-325 00:00: EVERY DAY José Miguel as mg tablet 00 BY ORAL Medical ROUTE Branch NEEDED FOR 28 DAYS. HYDROcodone 0 Yes TAKE 1 Univ ers -acetaminop 2-13 TABLET ity of hen 5-325 00:00: EVERY DAY José Miguel as mg tablet 00 BY ORAL Medical ROUTE Branch NEEDED FOR 28 DAYS. HYDROcodone Yes TAKE 1 Univ ers -acetaminop 2-13 TABLET ity of hen 5-325 00:00: EVERY DAY José Miguel as mg tablet 00 BY ORAL Medical ROUTE Branch NEEDED FOR 28 DAYS. HYDROcodone 0 Yes TAKE 1 Univ ers -acetaminop 2-13 TABLET ity of hen 5-325 00:00: EVERY DAY José Miguel as mg tablet 00 BY ORAL Medical ROUTE Branch NEEDED FOR 28 DAYS. HYDROcodone Yes TAKE 1 Univ ers -acetaminop 2-13 TABLET ity of hen 5-325 00:00: EVERY DAY José Miguel as mg tablet 00 BY ORAL Medical ROUTE Branch NEEDED FOR 28 DAYS. HYDROcodone Yes TAKE 1 Univ ers -acetaminop 2-13 TABLET ity of hen 5-325 00:00: EVERY DAY José Miguel as mg tablet 00 BY ORAL Medical ROUTE Branch NEEDED FOR 28 DAYS. HYDROcodone Yes TAKE 1 Univ ers -acetaminop 2-13 TABLET ity of hen 5-325 00:00: EVERY DAY José Miguel as mg tablet 00 BY ORAL Medical ROUTE Branch NEEDED FOR 28 DAYS. HYDROcodone Yes TAKE 1 Univ ers -acetaminop 2-13 TABLET ity of hen 5-325 00:00: EVERY DAY José [place] as mg tablet 00 BY ORAL Medical ROUTE Branch NEEDED FOR 28 DAYS. HYDROcodone Yes TAKE 1 Univ ers -acetaminop 2-13 TABLET ity of hen 5-325 00:00: EVERY DAY José [place] as mg tablet 00 BY ORAL Medical ROUTE Branch NEEDED FOR 28 DAYS. atorvastati Yes atorvastat [facility] n (LIPITOR) 2-[address] 20 mg 00:00: tablet Hospita tablet 00 TAKE 1 l TABLET BY MOUTH AT BEDTIME tiZANidine 2020-07 Yes 4mg Q8H Take 4 mg [facility] (ZANAFLEX) 0-[address] 4 MG tablet 15:55: every 8 Hos james 39 (eight) l hours as needed for muscle spasms. meloxicam 2020-07 Yes meloxicam Met [facility] (MOBIC) 15 0-[address] mg tablet 15:55: tablet Hospit a 39 TAKE 1 l TABLET BY MOUTH ONCE DAILY cephalexin 2020-07 Yes cephalexin M ethodi (KEFLEX) 0-[address] 500 MG 15:55: capsule Hospita capsule 39 TAKE 1 l CAPSULE BY MOUTH TWICE DAILY naloxegoL 2020-07 Yes Q24H daily. Method i (Movantik) 0-12 st 12.5 mg 15:55: Hospita tablet 39 l tablet nortriptyli Yes [id number] TAKE 1 [facility] ne 4-[address] (PAMELOR) 00:00: MOUTH ONCE Ho spita 25 MG 00 DAILY AT l capsule NIGHT rizatriptan Yes rizatripta Univers 10 mg 4-13 n 10 mg ity of tablet 00:00: tablet TAKE ONE Medical TABLET BY Branch MOUTH AT ONSET OF HEADACHE, MAY REPEAT ONE TABLET IN 2 HOURS IF NEEDED DO NOT EXCEED 3 TABLETS IN 24 HOURS rizatriptan Yes rizatripta Univers 10 mg 4-13 n 10 mg ity of tablet 00:00: tablet TAKE ONE Medical TABLET BY Branch MOUTH AT ONSET OF HEADACHE, MAY REPEAT ONE TABLET IN 2 HOURS IF NEEDED DO NOT EXCEED 3 TABLETS IN 24 HOURS rizatriptan Yes rizatripta Univers 10 mg 4-13 n 10 mg ity of tablet 00:00: tablet TAKE ONE Medical TABLET BY Branch MOUTH AT ONSET OF HEADACHE, MAY REPEAT ONE TABLET IN 2 HOURS IF NEEDED DO NOT EXCEED 3 TABLETS IN 24 HOURS rizatriptan Yes rizatripta Univers 10 mg 4-13 n 10 mg ity of tablet 00:00: tablet TAKE ONE Medical TABLET BY Branch MOUTH AT ONSET OF HEADACHE, MAY REPEAT ONE TABLET IN 2 HOURS IF NEEDED DO NOT EXCEED 3 TABLETS IN 24 HOURS rizatriptan Yes rizatripta Univers 10 mg 4-13 n 10 mg ity of tablet 00:00: tablet TAKE ONE Medical TABLET BY Branch MOUTH AT ONSET OF HEADACHE, MAY REPEAT ONE TABLET IN 2 HOURS IF NEEDED DO NOT EXCEED 3 TABLETS IN 24 HOURS rizatriptan Yes rizatripta Univers 10 mg 4-13 n 10 mg ity of tablet 00:00: tablet 00 TAKE ONE Medical TABLET BY Branch MOUTH AT ONSET OF HEADACHE, MAY REPEAT ONE TABLET IN 2 HOURS IF NEEDED DO NOT EXCEED 3 TABLETS IN 24 HOURS rizatriptan Yes rizatripta Univers 10 mg 4-13 n 10 mg ity of tablet 00:00: tablet 00 TAKE ONE Medical TABLET BY Branch MOUTH AT ONSET OF HEADACHE, MAY REPEAT ONE TABLET IN 2 HOURS IF NEEDED DO NOT EXCEED 3 TABLETS IN 24 HOURS rizatriptan Yes rizatripta Univers 10 mg 4-13 n 10 mg ity of tablet 00:00: tablet 00 TAKE ONE Medical TABLET BY Branch MOUTH AT ONSET OF HEADACHE, MAY REPEAT ONE TABLET IN 2 HOURS IF NEEDED DO NOT EXCEED 3 TABLETS IN 24 HOURS rizatriptan Yes rizatripta Univers 10 mg 4-13 n 10 mg ity of tablet 00:00: tablet 00 TAKE ONE Medical TABLET BY Branch MOUTH AT ONSET OF HEADACHE, MAY REPEAT ONE TABLET IN 2 HOURS IF NEEDED DO NOT EXCEED 3 TABLETS IN 24 HOURS rizatriptan Yes rizatripta Univers 10 mg 4-13 n 10 mg ity of tablet 00:00: tablet 00 TAKE ONE Medical TABLET BY Branch MOUTH AT ONSET OF HEADACHE, MAY REPEAT ONE TABLET IN 2 HOURS IF NEEDED DO NOT EXCEED 3 TABLETS IN 24 HOURS rizatriptan Yes rizatripta Univers 10 mg 4-13 n 10 mg ity of tablet 00:00: tablet 00 TAKE ONE Medical TABLET BY Branch MOUTH AT ONSET OF HEADACHE, MAY REPEAT ONE TABLET IN 2 HOURS IF NEEDED DO NOT EXCEED 3 TABLETS IN 24 HOURS rizatriptan Yes rizatripta Univers 10 mg 4-13 n 10 mg ity of tablet 00:00: tablet 00 TAKE ONE Medical TABLET BY Branch MOUTH AT ONSET OF HEADACHE, MAY REPEAT ONE TABLET IN 2 HOURS IF NEEDED DO NOT EXCEED 3 TABLETS IN 24 HOURS rizatriptan Yes rizatripta Univers 10 mg 4-13 n 10 mg ity of tablet 00:00: tablet [place] 00 TAKE ONE Medical TABLET BY Branch MOUTH AT ONSET OF HEADACHE, MAY REPEAT ONE TABLET IN 2 HOURS IF NEEDED DO NOT EXCEED 3 TABLETS IN 24 HOURS rizatriptan Yes rizatripta Univers 10 mg 4-13 n 10 mg ity of tablet 00:00: tablet TAKE ONE Medical TABLET BY Branch MOUTH AT ONSET OF HEADACHE, MAY REPEAT ONE TABLET IN 2 HOURS IF NEEDED DO NOT EXCEED 3 TABLETS IN 24 HOURS rizatriptan Yes rizatripta Univers 10 mg 4-13 n 10 mg ity of tablet 00:00: tablet TAKE ONE Medical TABLET BY Branch MOUTH AT ONSET OF HEADACHE, MAY REPEAT ONE TABLET IN 2 HOURS IF NEEDED DO NOT EXCEED 3 TABLETS IN 24 HOURS rizatriptan Yes rizatripta Univers 10 mg 4-13 n 10 mg ity of tablet 00:00: tablet TAKE ONE Medical TABLET BY Branch MOUTH AT ONSET OF HEADACHE, MAY REPEAT ONE TABLET IN 2 HOURS IF NEEDED DO NOT EXCEED 3 TABLETS IN 24 HOURS rizatriptan Yes rizatripta Univers 10 mg 4-13 n 10 mg ity of tablet 00:00: tablet TAKE ONE Medical TABLET BY Branch MOUTH AT ONSET OF HEADACHE, MAY REPEAT ONE TABLET IN 2 HOURS IF NEEDED DO NOT EXCEED 3 TABLETS IN 24 HOURS rizatriptan Yes rizatripta Univers 10 mg 4-13 n 10 mg ity of tablet 00:00: tablet TAKE ONE Medical TABLET BY Branch MOUTH AT ONSET OF HEADACHE, MAY REPEAT ONE TABLET IN 2 HOURS IF NEEDED DO NOT EXCEED 3 TABLETS IN 24 HOURS HYDROcodone 2019-0 Yes TAKE 1 Meth lakhwinder -acetaminop 6-[address] [facility] (NORCO) 00:00: MOUTH ONCE Hospita 5-325 mg 00 DAILY l per tablet NEEDED FOR 28 DAYS TRAMADOL 2020-0 Yes Take by Univer s HCL 3-13 mouth 2 ity of (TRAMADOL 13:37: (two) [place] ORAL) 56 times Medical daily. Branch Indication s: prn TRAMADOL 2020-0 Yes Take by Univer s HCL 3-13 mouth 2 ity of (TRAMADOL 13:37: (two) [place] ORAL) 56 times Medical daily. Branch Indication s: prn TRAMADOL 2020-0 Yes Take by Univer s HCL 3-13 mouth 2 ity of (TRAMADOL 13:37: (two) [place] ORAL) 56 times Medical daily. Branch Indication s: prn TRAMADOL 2020-0 Yes Take by Univer s HCL 3-13 mouth 2 ity of (TRAMADOL 13:37: (two) [place] ORAL) 56 times Medical daily. Branch Indication s: prn TRAMADOL 2020-0 Yes Take by Univer s HCL 3-13 mouth 2 ity of (TRAMADOL 13:37: (two) [place] ORAL) 56 times Medical daily. Branch Indication s: prn TRAMADOL 2020-0 Yes Take by Univer s HCL 3-13 mouth 2 ity of (TRAMADOL 13:37: (two) [place] ORAL) 56 times Medical daily. Branch Indication s: prn TRAMADOL 2020-0 Yes Take by Univer s HCL 3-13 mouth 2 ity of (TRAMADOL 13:37: (two) [place] ORAL) 56 times Medical daily. Branch Indication s: prn TRAMADOL 2020-0 Yes Take by Univer s HCL 3-13 mouth 2 ity of (TRAMADOL 13:37: (two) [place] ORAL) 56 times Medical daily. Branch Indication s: prn TRAMADOL 2020-0 Yes Take by Univer s HCL 3-13 mouth 2 ity of (TRAMADOL 13:37: (two) [place] ORAL) 56 times Medical daily. Branch Indication s: prn TRAMADOL 2020-0 Yes Take by Univer s HCL 3-13 mouth 2 ity of (TRAMADOL 13:37: (two) [place] ORAL) 56 times Medical daily. Branch Indication s: prn TRAMADOL 2020-0 Yes Take by Univer s HCL 3-13 mouth 2 ity of (TRAMADOL 13:37: (two) [place] ORAL) 56 times Medical daily. Branch Indication s: prn TRAMADOL 2020-0 Yes Take by Univer s HCL 3-13 mouth 2 ity of (TRAMADOL 13:37: (two) [place] ORAL) 56 times Medical daily. Branch Indication s: prn TRAMADOL 2020-0 Yes Take by Univer s HCL 3-13 mouth 2 ity of (TRAMADOL 13:37: (two) [place] ORAL) 56 times Medical daily. Branch Indication s: prn TRAMADOL 2020-0 Yes Take by Univer s HCL 3-13 mouth 2 ity of (TRAMADOL 13:37: (two) [place] ORAL) 56 times Medical daily. Branch Indication s: prn TRAMADOL 2020-0 Yes Take by Univer s HCL 3-13 mouth 2 ity of (TRAMADOL 13:37: (two) [place] ORAL) 56 times Medical daily. Branch Indication s: prn TRAMADOL 2020-0 Yes Take by Univer s HCL 3-13 mouth 2 ity of (TRAMADOL 13:37: (two) [place] ORAL) 56 times Medical daily. Branch Indication s: prn TRAMADOL 2020-0 Yes Take by Univer s HCL 3-13 mouth 2 ity of (TRAMADOL 13:37: (two) [place] ORAL) 56 times Medical daily. Branch Indication s: prn TRAMADOL 2020-0 Yes Take by Univer s HCL 3-13 mouth 2 ity of (TRAMADOL 13:37: (two) [place] ORAL) 56 times Medical daily. Branch Indication s: prn lisinopril 2016-07 Yes [id number] TAKE 1 M ethodi (PRINIVIL,Z 0-13 TABLET(10 st ESTRIL) 10 00:00: MG) BY Hospi ta mg tablet 00 MOUTH l DAILY amLODIPine Yes [id number] 5mg QD Take 1 M ethodi (NORVASC) 5 8-16 tablet (5 st mg tablet 00:00: mg total) Hos james 00 by mouth l daily. Immunizations Ordered Filled Date Status Comments Source Immunization Name Immunization Name Influenza Virus 2021-04-21 Completed Universit y of Vaccine 00:00:00 [facility] Influenza Virus 2021-04-21 Completed Universit y of Vaccine 00:00:00 [facility] Influenza Virus 2021-04-21 Completed Universit y of Vaccine 00:00:00 [facility] Influenza Virus 2021-04-21 Completed Universit y of Vaccine 00:00:00 [facility] Influenza Virus 2021-04-21 Completed Universit y of Vaccine 00:00:00 [facility] Influenza Virus 2021-04-21 Completed Universit y of Vaccine 00:00:00 [facility] Influenza Virus 2021-04-21 Completed Universit y of Vaccine 00:00:00 [facility] Influenza Virus 2021-04-21 Completed Universit y of Vaccine 00:00:00 [facility] Influenza Virus 2021-04-21 Completed Universit y of Vaccine 00:00:00 [facility] Influenza Virus 2021-04-21 Completed Universit y of Vaccine 00:00:00 [facility] Influenza Virus 2021-04-21 Completed Universit y of Vaccine 00:00:00 [facility] Influenza Virus 2021-04-21 Completed Universit y of Vaccine 00:00:00 [facility] Influenza Virus 2021-04-21 Completed Universit y of Vaccine 00:00:00 [facility] Influenza Virus Unknown Completed Universit y of Vaccine [facility] Influenza Virus Unknown Completed Universit y of Vaccine [facility] Influenza Virus Unknown Completed Universit y of Vaccine [facility] Influenza Virus Unknown Completed Universit y of Vaccine [facility] Influenza Virus Unknown Completed Universit y of Vaccine [facility] PFIZER COVID-19 Unknown Completed [facility] P[facility] COVID-19 Unknown Completed [facility] P[facility] COVID-19 Unknown Completed [facility] Vital Signs Vital Name Observation Time Observation Value Comments Source Systolic blood 2022-10-08 19:18:00 135 mm[Hg] Univer sity of pressure [facility] Diastolic blood 2022-10-08 19:18:00 88 mm[Hg] Unive rsity of [facility] Heart rate 2022-10-08 19:18:00 72 /[facility] Respiratory rate 2022-10-08 19:18:00 19 /min [facility] Body height 2022-10-08 19:18:00 175.3 cm [facility] Body weight 2022-10-08 19:18:00 90.719 kg [facility] BMI 2022-10-08 19:18:00 29.53 kg/m2 [facility] Oxygen saturation in 2022-10-08 19:18:00 97 /min [facility] Arterial blood by [facility] Pulse oximetry Branch Systolic blood 2022-08-09 15:15:00 144 mm[Hg] Univer sity of pressure [facility] Diastolic blood 2022-08-09 15:15:00 86 mm[Hg] Unive rsity of pressure [facility] Heart rate 2022-08-09 15:15:00 64 /min [facility]i [facility] Body temperature 2022-08-09 15:15:00 36.56 Radha [facility] Respiratory rate 2022-08-09 15:15:00 18 /min [facility] Body weight 2022-08-09 15:15:00 93.804 kg Universi ty [facility] Medical [place] BMI 2022-08-09 15:15:00 30.54 kg/m2 Universi ty [facility] Oxygen saturation in 2022-08-09 15:15:00 97 /min University of Arterial blood by [facility] Pulse oximetry Branch Systolic blood 2022-04-02 20:14:00 126 mm[Hg] Univer sity of [facility] Diastolic blood 2022-04-02 20:14:00 83 mm[Hg] Unive rsity of [facility] Heart rate 2022-04-02 20:14:00 66 /min Universi [facility] Respiratory rate 2022-04-02 20:14:00 17 /min Univ [facility] Body height 2022-04-02 20:14:[address] [facility] Body weight 2022-04-02 20:14:00 93.668 kg Universi ty [facility] Medical [place] BMI 2022-04-02 20:14:00 30.49 kg/m2 Universi ty [facility] Oxygen saturation in 2022-04-02 20:14:00 96 /min University of Arterial blood by [facility] Pulse oximetry Branch Procedures Procedure Date / Time Performed Performing Clinician Sour e XR ANKLE 3+ VW RIGHT 2023-04-11 20:48:34 Requisition, Paper [facility] XR KNEE 3 VW BILATERAL 2023-04-11 20:48:34 [facility], [facility]IGN[facility] OF BENEFITS 2023-04-11 19:43:30 Doctor Unassigned, No University [facility] Name Medical Branch US HEAD NECK 2022-12-31 18:34:20 [facility] o f [facility] PATIENT FINANCIAL 2022-10-08 18:58:47 Doctor Unassigned, No University [facility] POLICY Name Medical Branch REFERRAL- 2022-07-17 06:01:00 Doctor Unassigned, No [facility] REQUEST/RESPONSE Name [facility] Plan of Care Planned Activity Planned Date Details Comments Source Future Scheduled 2023-05-05 Screening for [facility] Test 17:52:00 malignant neoplasm of colon (procedure) [code = 703346710] Future Scheduled 2023-05-05 [facility] Test 17:52:00 malignant neoplasm of colon (procedure) [code = 729443616] Future Scheduled 2023-05-05 Scre[facility] Test 17:52:00 malignant neoplasm of colon (procedure) [code = 896928838] Future Scheduled 2023-05-05 [facility] Test 17:52:00 screening (procedure) [code = 658176191] Future Scheduled 2023-05-05 [facility] Test 17:52:00 malignant neoplasm of colon (procedure) [code = 873721641] Future Scheduled 2023-05-05 [facility] Test 17:52:00 malignant neoplasm of colon (procedure) [code = 110466949] Future Scheduled 2023-05-05 SHINGLES VACCINES [facility] Test 17:52:00 (1 of 2) [code = SHINGLES VACCINES (1 of 2)] Future Scheduled 2023-05-05 RSV VACCINES > 60 [facility] Test 17:52:00 YR (1 - 1-dose 60+ series) [code = RSV VACCINES > 60 YR (1 - 1-dose 60+ series)] Future Scheduled 2023-05-05 COVID-19 VACCINE ([facility] 17:52:00 - season) [code = COVID-19 VACCINE (4 - season)] Future Scheduled 2023-05-05 INFLUENZA VACCINE [facility] Test 17:52:00 (#1) [code = INFLUENZA VACCINE (#1)] Encounters Start End Encounter Admission Attending Care Care Encounter Source Date/Time Date/Time Type Type Clinicians Facility Department ID 2023-10-03 2023-10-03 Outpatient R LOOMIS, [facility] [id number] Univers 14:00:00 14:00:00 SENDIL ity [facility] 2023-04-11 2023-04-11 Outpatient R RADIOLOGY [facility] [id number] Univers 14:43:38 23:59:[facility] 2023-04-11 2023-04-11 Hospital Radiology [facility] 1.2.840.114 [id number] Univers 14:43:38 23:59:00 Encounter [place] 350.1.13.10 ity of [place] 4.2.7.2.686 [facility] [id number] [facility] 807 Branch 2023-04-11 2023-04-11 Orders Doctor IMMANUEL 1.2.840.114 [id number] Univers 00:00:00 00:00:00 Only Unassigned, EFRA 350.1.13.10 ity of [place] [facility] 4.2.7.2.686 [place] [facility] [id number] [facility] 009 Branch 2023-04-11 2023-04-11 Telephone Team, [facility] IMMANUEL 1.2.840.114 [id number] Univers 00:00:00 00:00:00 Health EFRA 350.1.13.10 it y of [facility] 4.2.7.2.686 [place] [id number] [facility] 082 Branch 2023-03-26 2023-03-26 Kobe Huertas 1.2.840.1 [id number] Methodi 00:00:00 00:00:[address] 3.430.2.7 Hospit a .3.070086 l .8 2023-02-19 2023-02-19 Kobe Huertas 1.2.840.1 [id number] 21 [id number] Methodi 00:00:00 00:00:[address] 3.430.2.7 Hospit a .3.680668 l .8 2023-01-06 2023-01-06 Kobe Huetras 1.2.840.1 [id number] 21 [id number] Methodi 00:00:00 00:00:[address] 3.430.2.7 Hospit a .3.574818 l .8 2022-12-31 2022-12-31 Outpatient R ZAHRA YOUNGER [facility] [id number] Univers 12:20:46 23:59:00 ZAHRA YOUNGER ity [facility] 2022-12-31 2022-12-31 [facility] Carisa [facility] 1.2.840.114 [id number] Univers 12:20:46 23:59:00 Encounter Zahra SORIANO 350.1.13.10 [place] [id number] [facility] 806 [place] 2022-12-10 2022-12-10 RefKobe Norman 1.2.840.1 [id number] Methodi 00:00:00 00:00:[address] 3.430.2.7 Hospit a .3.098023 l .8 2022-10-09 2022-10-09 Telephone Ebonie [facility] 1.2.028.208 [id number] Univers 00:00:00 00:00:00 Mo SORIANO 350.1.13.10 it[place].2.[place] [id number] [place] 811469 [facility] 2022-10-08 2022-10-08 Outpatient R EBONIE [facility] [id number] Univers 14:30:00 14:33:15 SENDIL ity of [facility] 2022-10-08 2022-10-08 Office Ebonie [facility] 1.2.840.114 [id number] Univers 14:30:00 14:33:15 Visit Mo SORIANO 350.1.13.10 it[place] [id number] [place] 811469 [facility] 2022-10-08 2022-10-08 Orders Doctor IMMANUEL 1.2.840.114 [id number] Univers 00:00:00 00:00:00 Only Unassigned, EFRA 350.1.13.10 ity of [place] [facility] 4.2.7.2.686 José Miguel as [id number] [facility] 009 [place] 2022-10-05 2022-10-05 Spiritual Advisor 2, Adc Lab [facility] 1.2.840.114 [id number] Univers 14:30:00 14:45:00 Visit Mo Loomis 350.1.13. 10 ity [facility] 4.2.[place].2.[place] [id number] Il dical NAL 353 [facility] 2022-10-05 2022-10-05 [facility] [id number] Univers 14:30:00 14:30:00 SENDIL [facility] 2022-08-30 2022-08-30 [facility] 1.2.840.114 [id number] Univers 00:00:00 00:00:00 Sendil Bhavani SORIAN[place] 350.1.13.10 it[place].2.[place] [id number] Il dical NAL 059 [facility] 2022-08-09 2022-08-09 Outpatient R WEI [facility] [id number] Univers 15:00:00 15:00:00 DICK [facility] 2022-08-09 2022-08-09 Outpatient R CARISA [facility] [id number] Univers 10:00:00 10:19:23 ZAHRA YOUNGER [facility] 2022-08-09 2022-08-09 Office [facility] 1.2.840.114 [id number] Univers 10:00:00 10:19:23 Visit Zahra SORIANO 350.1.13.10 it[place] [id number] Il dical NAL 188 [facility] 2022-07-20 2022-07-20 Patient Doctor IMMANUEL 1.2.840.114 [id number] Univers 00:00:00 00:00:00 Secure Msg Unassigned, EFRA 350.1.13.10 ity of [place] [facility] 4.2.7.2.686 José Miguel as [id number] [facility] 019 [place] 2022-07-17 2022-07-17 Orders Doctor IMMANUEL 1.2.840.114 [id number] Univers 00:00:00 00:00:00 Only Unassigned, EFRA 350.1.13.10 ity of [place] [facility] 4.2.7.2.686 José Miguel as [id number] [facility] 009 [place] 2022-04-19 2022-04-19 Outpatient KOBE RESENDEZ [facility] [id number] [place] 00:00:00 00:00:[address] 2022-04-02 2022-04-02 Outpatient R EBONIE [facility] [id number] Univers 15:00:00 15:31:06 SENDIL ity [facility] 2022-04-02 2022-04-02 Office Ebonie PRDEL 1.2.840.114 [id number] Univers 15:00:00 15:31:06 Visit Senderica SORIANO 350.1.13.10 ity of [facility] 4.2.7.2.[place] [id number] [address] 2022-04-02 2022-04-02 Outpatient R EBONIE [facility] [id number] Univers 15:00:00 15:00:00 SENDIL ity [facility] 2022-04-02 2022-04-02 Orders Doctor IMMANUEL 1.2.840.114 [id number] Univers 00:00:00 00:00:00 Only Unassigned, EFRA 350.1.13.10 ity of [place] [facility] 4.2.7.2.686 Jsoé Miguel as [id number] [address] 2021-11-30 2021-11-30 Patient Doctor CADY 1.2.840.114 [id number] Univers 00:00:00 00:00:00 Secure Msg Unassigned, HEALTH 350.1.13.10 ity of [place]2.7.2.[place] [id number] [address] OFFICE BUILDING 2021-11-23 2021-11-23 Telephone Ebonie PRDEL 1.2.832.857 [id number] Univers 00:00:00 00:00:00 Mo SORIANO 350.1.13.10 ity of [facility] 4.2.7.2.[place] [id number] [address] 2021-11-23 2021-11-23 Telephone Ebonie PRDEL 1.2.418.335 [id number] Univers 00:00:00 00:00:00 Mo SORIANO 350.1.13.10 ity of [place].2.[place] [id number] Il dical NAL 059 [facility] 2021-11-17 2021-11-17 Spiritual Advisor 2, Adc Lab [facility] 1.2.840.114 [id number] Univers 13:45:00 14:00:00 Visit Mo Loomis 350.1.13. 10 ity of [facility] 4.2.7.2.[place] [id number] Il dical NAL 353 [facility] 2021-11-17 2021-11-17 Outpatient Arya LOOMIS [facility] [id number] Univers 13:45:00 13:45:00 SENDIL ity [facility] 2021-09-27 2021-09-27 Office Ebonie PRDEL 1.2.840.114 [id number] Univers 15:00:00 15:33:52 Visit Mo SORIANO 350.1.13.10 it[place] of [place] 4[place].2.[place] [id number] Il dic[address] 2021-09-27 2021-09-27 Outpatient R EBONIE [facility] [id number] Univers 15:00:00 15:33:52 SENDIL ity [facility] 2021-09-27 2021-09-27 Outpatient Arya LOOMIS [facility] [id number] Univers 15:00:00 15:00:00 SENDIL ity [facility] 2021-09-05 2021-09-05 Outpatient KOBE RESENDEZ [facility] [id number] [place] 00:00:00 00:00:[address] 2021-08-28 2021-08-28 Telephone Ebonie PRDEL 1.2.792.666 [id number] Univers 00:00:00 00:00:00 Mo SORIANO 350.1.13.10 ity of [facility] 4.2.7.2.[place] [id number] Il dical NAL 059 [facility] 2021-08-21 2021-08-21 Spiritual Advisor Bre, Adc Lab Main [facility] 1.2.8 40.114 [id number] Univers 14:15:00 14:30:00 Visit Mo Loom[place] 350.1.13. 10 ity of [facility] 4.2.7.2.[place] [id number] Il dical NAL 353 [facility] 2021-08-21 2021-08-21 Outpatient R EBONIE [facility] [id number] [facility] 14:15:00 14:15:00 SENDIL ity [facility] 2021-08-21 2021-08-21 Orders Doctor IMMANUEL 1.2.840.114 [id number] [facility] 00:00:00 00:00:00 Only Unassigned, EFRA 350.1.13.10 ity of [place] [facility] 4.2.7.2.686 José Miguel as [id number] [address] 2021-05-15 2021-05-15 Outpatient [facility] [id number] [place] 00:00:00 00:00:[address] 2021-05-03 2021-05-03 Telephone Ebonie [facility] 1.2.621.574 [id number] [facility] 00:00:00 00:00:00 Mo Soriano 350.1.13.10 ity of [place].2.[place] [phone] Il dical nal 059 [facility] 2021-05-02 2021-05-02 Outpatient KOBE RESENDEZ [facility] [id number] [place] 00:00:00 00:00:[address] 2021-04-27 2021-04-27 [facility] 1.2.840.114 [id number] [facility] 12:49:34 23:59:00 Encounter Mo Soriano 350.1.13.10 ity of [place] 4[place]2.[place].2.[place] [id number] Il dical nal 843 [facility] 2021-04-27 2021-04-27 Outpatient R EBONIE [facility] [id number] Univers 13:00:00 13:00:00 SENDIL ity [facility] 2021-04-06 2021-04-06 Spiritual Advisor 2, Adc Lab [facility] 1.2.840.114 [id number] Univers 10:29:06 10:44:06 Visit Mo [place] 350.1.13. 10 ity of [place].2.[place] [phone] Il dical nal 353 [facility] 2021-04-06 2021-04-06 Spiritual Advisor 2, Adc Lab [facility] 1.2.840.114 [id number] Univers 10:29:06 10:44:06 Visit Mo [place] 350.1.13. 10 ity of [place].2.[place] [phone] Il dical nal 353 [facility] 2021-04-06 2021-04-06 Office Ebonie [facility] 1.2.840.114 [id number] [facility] 09:33:43 10:22:14 Visit Mo Soriano 350.1.13.10 it[place] of [place] 4.[place].2.[place] [phone] Il dical nal 059 [facility] 2021-04-06 2021-04-06 [facility] [id number] Univers 10:00:00 10:00:00 SENDIL ity [facility] 2020-11-02 2020-11-02 Hospital Radiology [facility] 1.2.840.114 [id number] Univers 16:10:51 23:59:00 Encounter Will 350.1.13.10 ity of [place] 4.2.7.2.[place] [id number] [address] 2020-11-02 2020-11-02 Outpatient R RADIOLOGY [facility] [id number] Univers 00:00:00 00:00:00 ity of [facility] 2020-11-02 2020-11-02 Orders Doctor GAMBINO 1.2.840.114 [id number] Univers 00:00:00 00:00:00 Only Unassigned, EFRA 350.1.13.10 ity of [facility] 4.2.7.2.686 José Miguel as [id number] [facility] 009 Branch 2020-10-25 2020-10-25 Outpatient KOBE RESENDEZ [facility] [id number] [place] 00:00:00 00:00:[address] 2020-10-06 2020-10-06 Outpatient MERYL, [facility] [id number] [place] 00:00:00 00:00:00 CHRISTOPHER 411 Me thodi 2020-09-15 2020-09-15 Outpatient [facility] [id number] [place] 00:00:00 00:00:00 391 Method i 2020-07-14 2020-07-14 [facility] 1.2.076.358 [id number] Univers 02:05:00 03:06:00 Oscar Soriano 350.1.13.10 i ty [facility] 4.2.7.2.[place] [id number] [facility] 084 Branch 2020-07-14 2020-07-14 Emergency [facility] [id number] Univers 02:05:00 03:06:00 OSCAR gurpreet [facility] 2020-02-16 2020-02-16 Outpatient [facility] [id number] Univers 11:30:00 11:30:00 SENDIL ity [facility] 2020-02-04 2020-02-04 Outpatient Arya [facility] [id number] Univers 13:00:00 13:00:00 [facility] 2020-01-12 2020-01-12 Outpatient BHANU, [facility] [id number] 007 [place] 00:00:00 00:00:00 DAVID 938 Method i 2019-11-13 2019-11-13 [facility] 1.2.840.114 [id number] Univers 08:29:29 15:59:36 ne Visit Mo Soriano 350.1.13.10 ity [facility] 4.2.7.2.[place] [phone] Il dical nal 059 [facility] 2019-11-13 2019-11-13 Outpatient R [facility] [id number] Univers 15:00:00 15:00:00 SENDIL ity [facility] 2019-11-10 2019-11-10 Telephone Ebonie [facility] 1.2.561.304 [id number] Univers 00:00:00 00:00:00 Sendil Bhavani Soriano 350.1.13.10 ity of [place].2.[place] [phone] Il dicaugust nal [address] [place] [address] 2019-10-15 2019-10-15 Tele[facility] 1.2.843.006 [id number] Univers 00:00:00 00:00:00 Sendil Bhavani Soriano 350.1.13.10 ity of [place] 4[place].2.[place] [phone] Il dicaugust nal [address] [place] [address] 2019-10-06 2019-10-06 Outpatient R [facility] [id number] Univers 16:00:00 16:00:00 ity [facility] 2019-10-02 2019-10-02 Office [facility] 1.2.840.114 [id number] Univers 13:21:43 14:33:15 Visit Senderica Soriano 350.1.13.10 ity of [place] 4[place].2.[place] [phone] Il dicid nal [address] [place] [address] 2019-10-02 2019-10-02 Outpatient R [facility] [id number] Univers 14:00:00 14:00:00 SENDIL ity [facility] 2017-12-10 2017-12-11 Outpatient C BIRDIE [facility] [id number] [place] 07:47:00 12:58:00 , [facility] Results Test Description Test Time Test Comments Results Result Comments Source BASIC METABOLIC PANEL 2017-12-11 08:26:00 Test Item Value Reference Range Interpretation Comme nts GLUCOSE (test code = 06D) 171 mg/dL 75-100 H SODIUM (test code = 01A) 137 mmol/L 136-145 POTASSIUM (test code = 01B) 4.1 mmol/L 3.6-5.1 CHLORIDE (test code = 04A) 104 mmol/L 98-107 CO2 (test code = 02A) 27 mmol/L 22-32 ANION GAP (test code = ANG) 10.1 mmol/L BUN (test code = 05D) 14 mg/dL 7-18 CREATININE (test code = 03E) 1.0 mg/dL 0.7-1.3 BUN/CREA (test code = BCR) 14 12-20 CALCIUM (test code = 09D) 9.4 mg/dL 8.3-9.5 CBC (INCLUDES AUTOMATED DIFFERENTIAL)2017-12-11 08:13:00 Test Item Value Reference Range Interpretation Comments WBC (test code = WBC) 15.1 10\S\3/uL 4.5-11.0 H RBC (test code = RBC) 5.16 10\S\6/uL 4.20-5.60 HGB (test code = HBG) 14.5 g/dL 14.0-18.0 HCT (test code = HCT) 43.5 % 35.0-46.0 MCV (test code = MCV) 84.3 fL 80.0-94.0 MCH (test code = MCH) 28.1 pg 27.0-31.0 MCHC (test code = MCHC) 33.3 g/dL 32.0-36.0 RDW (test code = RDW) 13.2 % 11.5-14.5 PLT (test code = PLT) 251 10\S\3/uL 130-400 MPV (test code = MPV) 11.8 fL 9.4-12.4 NEUTROP # (test code = NE#) 13.6 10\S\3/uL 2.0-8.0 H LYMPH # (test code = LY#) 0.6 10\S\3/uL 1.2-4.0 L MONOCYTE # (test code = MO#) 0.8 10\S\3/uL 0.0-1.1 EOSINOPH # (test code = EO#) 0.0 10\S\3/uL 0.0-0.7 BASOPHIL # (test code = BA#) 0.0 10\S\3/uL 0.0-0.3 IG # (test code = IG#) 0.07 10\S\3/uL 0.00-0.06 H NRBC # (test code = NRBC#) 0.00 10\S\3/uL 0.00-0.01 NEUTROPH % (test code = NE%) 90.0 % 35.0-73.0 H LYMPH % (test code = LY%) 4.2 % 20.0-55.0 L MONO % (test code = MO%) 5.2 % 2.5-10.0 EOSINOPH % (test code = EO%) 0.0 % 0.0-5.0 BASOPHIL % (test code = BA%) 0.1 % 0.0-2.0 IG % (test code = IG%) 0.5 % 0.0-0.8 NRBC% (test code = NRBC%) 0.0 % 0.0-0.2 MANDIFF (test code = MDIFF) NO NO RBC MORPH (test code = RBCMOR) NORMAL XR C-ARM>1HR W IMAGES*HSE*2017-12-10 11:59:11Clinical history: Neck pain unspecified.Location: D4.Findings: 6 spot fluoroscopic intraoperative images are submitted. The imagesshow ACDF at C4-C7. Please refer to the operative report. A total of 9 secondsintraoperative fluoroscopy was utilized.Impression: Intraoperative fluoroscopy.COMPREHENSIVE METABOLIC [id number] 17:22:00 Test Item Value Reference Range Interpretation Comments GLUCOSE (test code = 06D) 96 mg/dL 75-100 SODIUM (test code = 01A) 139 mmol/L 136-145 POTASSIUM (test code = 01B) 4.0 mmol/L 3.6-5.1 CHLORIDE (test code = 04A) 107 mmol/L 98-107 CO2 (test code = 02A) 27 mmol/L 22-32 ANION GAP (test code = ANG) 9.0 mmol/L BUN (test code = 05D) 15 mg/dL 7-18 CREATININE (test code = 03E) 1.0 mg/dL 0.7-1.3 BUN/CREA (test code = BCR) 15 12-20 CALCIUM (test code = 09D) 8.7 mg/dL 8.3-9.5 BILI TOTAL (test code = 11A) 1.4 mg/dL 0.2-1.0 H PROTEIN (test code = 07D) 7.8 g/dL 6.4-8.2 ALBUMIN (test code = 08D) 4.0 g/dL 3.5-4.8 GLOBULIN (test code = GLB) 3.8 g/dL 1.5-3.8 ALB/GLOB (test code = AGRR) 1.1 1.0-2.6 ALK PHOS (test code = 35A) 57 IU/L 42-121 AST (test code = 30A) 18 IU/L <=42 ALT (test code = 31A) 26 IU/L <=78 PRO TIME AND [id number] 17:13:00 Test Item Value Reference Range Interpretation Comments PT (test code = 11.5 s 9.8-13.6 TT) INR (test code = 1.0 INR) INRH (test code = SUGGESTED THERAPEUTIC INRH) RANGE FOR INR: 2.5 - 3.5 For Patients with Prosthetic Valves or Patients with recurrent Thromboembolic Events 2.0 - 3.0 For Most Other Applications PTT (test code = 29.2 s 20.2-38.0 PTT) PTTH (test code = To monitor the PTTH) effectiveness of heparin, we offer the Anti-Xa (Heparin Assay). It can be used for either unfractionated or LMW Heparin. Order Code is ANTI-XA CBC (INCLUDES AUTOMATED DIFFERENTIAL)2017-12-05 17:11:00 Test Item Value Reference Range Interpretation Comments WBC (test code = WBC) 6.8 10\S\3/uL 4.5-11.0 RBC (test code = RBC) 5.22 10\S\6/uL 4.20-5.60 HGB (test code = HBG) 14.6 g/dL 14.0-18.0 HCT (test code = HCT) 44.0 % 35.0-46.0 MCV (test code = MCV) 84.3 fL 80.0-94.0 MCH (test code = MCH) 28.0 pg 27.0-31.0 MCHC (test code = MCHC) 33.2 g/dL 32.0-36.0 RDW (test code = RDW) 13.2 % 11.5-14.5 PLT (test code = PLT) 238 10\S\3/uL 130-400 MPV (test code = MPV) 11.3 fL 9.4-12.4 NEUTROP # (test code = NE#) 4.2 10\S\3/uL 2.0-8.0 LYMPH # (test code = LY#) 1.6 10\S\3/uL 1.2-4.0 MONOCYTE # (test code = MO#) 0.8 10\S\3/uL 0.0-1.1 EOSINOPH # (test code = EO#) 0.1 10\S\3/uL 0.0-0.7 BASOPHIL # (test code = BA#) 0.0 10\S\3/uL 0.0-0.3 IG # (test code = IG#) 0.02 10\S\3/uL 0.00-0.06 NRBC # (test code = NRBC#) 0.00 10\S\3/uL 0.00-0.01 NEUTROPH % (test code = NE%) 61.8 % 35.0-73.0 LYMPH % (test code = LY%) 24.1 % 20.0-55.0 MONO % (test code = MO%) 11.7 % 2.5-10.0 H EOSINOPH % (test code = EO%) 1.5 % 0.0-5.0 BASOPHIL % (test code = BA%) 0.6 % 0.0-2.0 IG % (test code = IG%) 0.3 % 0.0-0.8 NRBC% (test code = NRBC%) 0.0 % 0.0-0.2 MANDIFF (test code = MDIFF) NO NO RBC MORPH (test code = RBCMOR) NORMAL
--- NOTE | 2023-05-05 18:07 | EDPHYS ---
Physician Documentation [facility] Name: Danilo Noguera Jr Age: 63 yrs Sex: Male : 1960 Arrival Date: 05/05/2023 Time: 17:49 Bed 11 Private MD: ED Physician Norman Tolliver HPI: 05/05 18:08 This 63 yrs old Male presents to ER via Ambulatory with complaints of Leg ec2 Pain. 18:08 Patient arrives today due to concern for radiating right lower back pain. States that ec2 he has had chronic low back issues, states that he has previously required injections into the lower back. Patient reports no recent falls or traumas or injury. States that he has pain rating from the right lateral low back into the right buttock and leg. Patient reports no red flag symptoms, no bowel or bladder incontinence. Denies any weakness.. Historical: - Allergies: 18:01 No Known Allergies; ko1 - Immunization history:: Adult Immunizations up to date. - Social history:: Smoking status: Patient denies any tobacco usage or history of. ROS: 18:08 Constitutional: low back pain ec2 Exam: 18:08 Constitutional: PHYSICAL EXAMINATION: GENERAL: No acute distress HEENT: Extraocular ec2 motions intact CV: Regular rate LUNGS: No respiratory distress ABDOMEN: Nondistended SKIN: No rash MSK: Right lateral low back tenderness palpation, no C/T/L-spine tenderness palpation. Positive right-sided straight leg raise test. Intact strength and sensation. NEUROLOGIC: Moves all extremities equally Vital Signs: 17:58 BP 131 / 96; Pulse 72; Resp 16; Temp 98.8; Pulse Ox 99% ; Weight 83.91 kg; Height 5 ft. ko1 7 in. ; 17:58 Body Mass Index 28.97 (83.91 kg, 170.18 cm) ko1 MDM: 18:07 Patient medically screened. ec2 18:08 Data reviewed: vital signs. ED course: Patient arrives today due to concern for right ec2 lateral low back with radiating symptoms. Examination remarkable for a nontoxic dividual was in no acute distress. We will treat the patient with Toradol as well as steroids. Presentation consistent with sciatica. I have a low clinical index suspicion for an acute lumbar fracture or spinal cord injury. Accordingly I do not feel he would benefit from CT scan or MRI. I will discharge him home with prescription for Robaxin and prednisone and have him follow-up with a primary care doctor as well as a pain management doctor. Return precautions given.. Administered Medications: 18:22 Drug: predniSONE PO 40 mg PO once Route: PO; cm10 18:31 Follow up: Response: No adverse reaction cm10 18:23 Drug: Ketorolac IM 30 mg IM once Route: IM; Site: right ventrogluteal; cm10 18:31 Follow up: Response: No adverse reaction cm10 Disposition Summary: 05/05/23 18:07 Discharge Ordered Notes: Location: Home ec2 Condition: Stable ec2 Diagnosis - Sciatica, right side ec2 Discharge Instructions: - Discharge Summary Sheet ec2 - Sciatica ec2 Forms: - Medication Reconciliation Form ec2 - Thank You Letter ec2 - Antibiotic Education ec2 - Prescription Opioid Use ec2 - Patient Portal Instructions ec2 - Leadership Thank You Letter ec2 Prescriptions: - Prednisone 20 mg Oral Tablet - take 2 tablets ORAL route once daily for 5 days; 10 tablet; Refills: 0, Product ec2 Selection Permitted - methocarbamol 500 mg Oral tablet - take 2 tablets ORAL route 3 times per day; 20 tablet; Refills: 0, Product ec2 Selection Permitted Signatures: Jazmin Dodd RN RN ko1 Pushpa Estrada RN RN cm10 Norman Tolliver MD MD ec2 Corrections: (The following items were deleted from the chart) 18:01 18:01 PMHx: Hypertension; ko1 ko1 18:01 18:01 PMHx: Asbestos inhalation exposure; ko1 ko1 18:01 18:01 PMHx: pinched nerve; ko1 ko1
--- NOTE | 2023-05-05 18:07 | ER ---
Nurse's Notes [facility] Name: Danilo Noguera Jr Age: 63 yrs Sex: Male : 1960 Arrival Date: 05/05/2023 Time: 17:49 Bed 11 Private MD: Diagnosis: Sciatica, right side Presentation: 05/05 17:58 Chief complaint: Patient states: Saturday had pain in right hip and lower back ko1 stabbing/shooting, goes down right leg. Coronavirus screen: At this time, the client does not indicate any symptoms associated with coronavirus-19. Ebola Screen: No symptoms or risks identified at this time. Initial Sepsis Screen: Does the patient meet any 2 criteria? No. Patient's initial sepsis screen is negative. Does the patient have a suspected source of infection? No. Patient's initial sepsis screen is negative. Risk Assessment: Do you want to hurt yourself or someone else? Patient reports no desire to harm self or others. Onset of symptoms was May 05, 2023. 17:58 Method Of Arrival: Ambulatory ko1 17:58 Acuity: CHRISTA 3 ko1 Triage Assessment: 18:01 General: Appears in no apparent distress. uncomfortable, Behavior is calm, cooperative, ko1 appropriate for age. Pain: Complains of pain in right lower back. Historical: - Allergies: 18:01 No Known Allergies; ko1 - Immunization history:: Adult Immunizations up to date. - Social history:: Smoking status: Patient denies any tobacco usage or history of. Screenin:23 [facility] ED Fall Risk Assessment (Adult) History of falling in the last 3 months, cm10 including since admission No falls in past 3 months (0 pts) Confusion or Disorientation No (0 pts) Intoxicated or Sedated No (0 pts) Impaired Gait No (0 pts) Mobility Assist Device Used No (0 pt) Altered Elimination No (0 pt) Score/Fall Risk Level 0 - 2 = Low Risk Oriented to surroundings, Maintained a safe environment, Hourly rounding (assess needs \T\ fall precautionary measures) done. Abuse screen: Denies threats or abuse. Denies injuries from another. Nutritional screening: No deficits noted. Tuberculosis screening: No symptoms or risk factors identified. Vital Signs: 17:58 BP 131 / 96; Pulse 72; Resp 16; Temp 98.8; Pulse Ox 99% ; Weight 83.91 kg; Height 5 ft. ko1 7 in. ; 17:58 Body Mass Index 28.97 (83.91 kg, 170.18 cm) ko1 ED Course: 17:51 Patient arrived in ED. mg5 17:53 Norman Tolliver MD is Attending Physician. ec2 18:01 Triage completed. ko1 18:01 Arm band placed on right wrist. Patient notified of wait time. ko1 18:23 Patient has correct armband on for positive identification. Provided Education on: ER cm10 process and procedures.. 18:23 No provider procedures requiring assistance completed. Patient did not have IV access cm10 during this emergency room visit. Administered Medications: 18:22 Drug: predniSONE PO 40 mg PO once Route: PO; cm10 18:31 Follow up: Response: No adverse reaction cm10 18:23 Drug: Ketorolac IM 30 mg IM once Route: IM; Site: right ventrogluteal; cm10 18:31 Follow up: Response: No adverse reaction cm10 Medication: 18:23 VIS not applicable for this client. cm10 Outcome: 18:07 Discharge ordered by . ec2 18:23 Discharged to home ambulatory, cm10 18:23 Condition: good 18:23 Discharge instructions given to patient, Instructed on discharge instructions, follow up and referral plans. medication usage, Demonstrated understanding of instructions, follow-up care, medications, Prescriptions given X 2, 18:32 Patient left the ED. cm10 Signatures: Jazmin Dodd RN RN ko1 Pushpa Estrada RN RN cm10 Shira Grover mg5 Norman Tolliver MD MD ec2 Corrections: (The following items were deleted from the chart) 18:01 18:01 PMHx: Hypertension; ko1 ko1 18:01 18:01 PMHx: Asbestos inhalation exposure; ko1 ko1 18:01 18:01 PMHx: pinched nerve; ko1 ko1
[2023-05-05] MEDS ORDERED: predniSONE 20 MG TAB ONE (18:30)
[2023-05-05] MEDS ORDERED: KETOROLAC 30 MG/ML INJ ONE (18:31)
[2023-05-05 19:56] VITALS: BP 131/96; TEMP 98.8; O2SAT 99
== END 2023-05-05 18:32 | disposition home or self-care (01) ==
LOC: ER 17:49
DX: M54.31 Sciatica, right side (principal)
CPT/HCPCS: 96372; 99284; J7512

== ENCOUNTER 2023-11-21 00:17 | Emergency (ER) | payer OTHER ==
--- OUTSIDE RECORDS SUMMARY | 2023-11-21 00:21 | XMS REPORT | Continuity of Care Document ---
Author Name Unknown Address [address] [place] [address] [facility] Address [address] [place] [address] Care Team Providers Care Manager Retail Name Role Phone Eden Johnson M.D. Primary Care Physician Medications Ordered Medication Name Filled Medication Name Start Date Stop Date Current Medication? Ordering Clinician Indication Dosage Frequency Signature (SIG) Comments Components Source hydrocodone 5 mg-acetamin ophen 325 mg tablet 3-27 00:00: 00 Yes mg Oli Sharpe tizanidine 2 mg tablet 3-27 00:00: 00 Yes mg Oli Sharpe gabapentin 100 mg capsule 3-27 00:00: 00 Yes mg Oli Sharpe rizatriptan 10 mg tablet 3-15 00:00: 00 Yes mg Oli Sharpe TAKE 1 TABLET BY MOUTH ONCE DAILY NEEDED FOR MIGRAINE HEADACHE 3-14 00:00: 00 Yes Oli Sharpe ezetimibe 10 mg tablet 3-13 00:00: 00 Yes mg Oli Sharpe TAKE 1 TABLET BY MOUTH EVERY DAY NEEDED 2-28 00:00: 00 Yes Oli Sharpe TAKE ONE (1) TABLET(S) BY MOUTH TWICE A DAY. 2-12 00:00: 00 Yes Oli Sharpe TAKE 10 ML(S) BY MOUTH EVEERY 4 HOURS NEEDED. 2-12 00:00: 00 Yes Oli Sharpe TAKE 2 TABLETS BY MOUTH ON DAY 1, THEN 1 TABLET DAILY ON DAYS 2 TO 5. 2-12 00:00: 00 Yes Oli Sharpe TAKE 1 TABLET BY MOUTH EVERY DAY NEEDED 4-0 1-03 00:00: 00 Yes Oli Sharpe TAKE 1 CAPSULE BY MOUTH TWICE DAILY NEEDED 2022-1 1-08 00:00: 00 Yes Oli Sharpe TAKE 1 TABLET BY MOUTH ONCE DAILY NEEDED FOR MIGRAINE HEADACHE 2022-1 0-22 00:00: 00 Yes Oli Sharpe TAKE 2 TABLETS BY MOUTH ONCE DAILY FOR 5 DAYS 2022-1 0-17 00:00: 00 Yes Oli Sharpe TAKE 2 TABLETS BY MOUTH THREE TIMES DAILY 2022-1 0-17 00:00: 00 Yes Oli Sharpe TAKE 1 TABLET BY MOUTH EVERY DAY NEEDED 2022-1 0-11 00:00: 00 Yes Oli Sharpe TAKE 1 TABLET BY MOUTH EVERY DAY NEEDED FOR 28 DAYS 2022-1 0-11 00:00: 00 Yes Oli Sharpe TAKE 1 TABLET BY MOUTH ONCE DAILY NEEDED FOR MIGRAINE HEADACHE 3-0 9-06 00:00: 00 Yes Oli Sharpe TAKE 1 TABLET BY MOUTH ONCE DAILY NEEDED FOR MIGRAINE HEADACHE 3-0 8-01 00:00: 00 Yes Oli Sharpe TAKE 1 TABLET BY MOUTH EVERY DAY NEEDED 3-0 7-19 00:00: 00 Yes Oli Sharpe TAKE 1 CAPSULE BY MOUTH TWICE DAILY NEEDED 3-0 7-19 00:00: 00 Yes Oli Sharpe TAKE 1 TABLET BY MOUTH ONCE DAILY NEEDED FOR MIGRAINE HEADACHE 3-0 5-22 00:00: 00 Yes 10 Oli Sharpe TAKE 1 CAPSULE BY MOUTH TWICE DAILY NEEDED 3-0 5-17 00:00: 00 Yes Oli Sharpe TAKE 1 TABLET BY MOUTH EVERY DAY NEEDED 3-0 4-19 00:00: 00 Yes Oli Sharpe TAKE 1 CAPSULE BY MOUTH TWICE DAILY NEEDED 3-0 4-19 00:00: 00 Yes Oli Sharpe TAKE 1 TABLET BY MOUTH EVERY DAY NEEDED 3-0 4-19 00:00: 00 Yes Oli Sharpe TAKE 1 TABLET BY MOUTH EVERY DAY NEEDED 3-0 3-22 00:00: 00 Yes Oli Sharpe TAKE 1 TABLET BY MOUTH IN THE MORNING AND 1 IN THE EVENING 3-0 3-20 00:00: 00 Yes Oli Sharpe TAKE 1 CAPSULE BY MOUTH TWICE DAILY NEEDED 3-0 2-15 00:00: 00 Yes Oli Sharpe TAKE 1 TABLET BY MOUTH AT BEDTIME 0 2-09 00:00: 00 Yes Oli Sharpe TAKE 1 TABLET BY MOUTH EVERY 8 HOURS 1 1-16 00:00: 00 Yes Oli Sharpe TAKE 1 TABLET BY MOUTH TWICE DAILY FOR 27 DAYS DIRECTED 1 0-26 00:00: 00 Yes Oli Sharpe TAKE 1 TABLET BY MOUTH THREE TIMES DAILY 1 0-12 00:00: 00 Yes Oli Sharpe TAKE 1 CAPSULE BY MOUTH TWICE DAILY 0 9-28 00:00: 00 Yes Oli Sharpe TAKE 1 TABLET BY MOUTH IN THE MORNING AND 1 IN THE EVENING 0 9-12 00:00: 00 Yes Oli Sharpe TAKE 1 TABLET BY MOUTH AT BEDTIME 0 912 00:00: 00 Yes Oli Sharpe TAKE 1 TABLET BY MOUTH TWICE DAILY DIRECTED 0 8 00:00: 00 Yes Oli Sharpe TAKE 1 TABLET BY MOUTH TWICE DAILY WITH FOOD 0 03-15 00:00: 00 Yes Oli Sharpe TAKE 1 TABLET TWICE A DAY BY ORAL ROUTE DIRECTED FOR 28 DAYS. 0 8-24 00:00: 00 Yes 2 Oli Sharpe TAKE 1 TABLET EVERY DAY BY ORAL ROUTE NEEDED FOR 28 DAYS. 0 824 00:00: 00 Yes Oli Sharpe Macrobid 100 mg capsule 8-31 00:00: 00 Yes 1mg Oli Sharpe Keflex 500 mg capsule 7-11 00:00: 00 Yes 1mg Oli Sharpe Vital Signs Vital Name Observation Time Observation Value Comments S ource Respiratory Rate 2023-10-28 13:44:00 Oli Sharpe BP Systolic 2023-10-28 13:44:00 133 mm[Hg] You Sharpe BP Diastolic 2023-10-28 13:44:00 83 mm[Hg] Morteza Sharpe Weight Measured 2023-10-28 13:44:00 213.20 pounds Oli Sharpe Height Measured 2023-10-28 13:44:00 69.00 inches Oli Sharpe Body Temperature 2023-10-28 13:44:00 98.20 degrees Oli Sharpe Heart Rate 2023-10-28 13:44:00 69.00 /min Beena en F Dell BP Systolic 2022-03-15 17:11:00 135 mm[Hg] Step hen F Dell BP Diastolic 2022-03-15 17:11:00 87 mm[Hg] Morteza phen F Dell Weight Measured 2022-03-15 17:11:00 206.60 pounds Oli F Dell Height Measured 2022-03-15 17:11:00 69.00 inches Oli F Dell Body Temperature 2022-03-15 17:11:00 98.30 degrees Oli F Dell Heart Rate 2022-03-15 17:11:00 80.00 /min Beena en F Dell Respiratory Rate 2022-03-15 17:11:00 18.00 /min Oli F Dell BP Systolic 2020-03-21 14:07:00 135 mm[Hg] Step hen F Dell BP Diastolic 2020-03-21 14:07:00 87 mm[Hg] Morteza phen F Dell Weight Measured 2020-03-21 14:07:00 214.00 pounds Oli F Dell Height Measured 2020-03-21 14:07:00 69.00 inches Oli F Dell Body Temperature 2020-03-21 14:07:00 98.90 degrees Oli F Dell Heart Rate 2020-03-21 14:07:00 85.00 /min Beena en F Dell Respiratory Rate 2020-03-21 14:07:00 17.00 /min Oli F Dell BP Systolic 2019-01-29 14:52:00 124 mm[Hg] Step hen F Dell BP Diastolic 2019-01-29 14:52:00 81 mm[Hg] Morteza phen F Dell Weight Measured 2019-01-29 14:52:00 220.00 pounds Oli F Dell Height Measured 2019-01-29 14:52:00 69.00 inches Oli F Dell Body Temperature 2019-01-29 14:52:00 98.70 degrees Oli F Dell Heart Rate 2019-01-29 14:52:00 108.00 /min Step hen F Dell Respiratory Rate 2019-01-29 14:52:00 16.00 /min Oli F Dell BP Systolic 2017-11-29 14:31:00 136 mm[Hg] Step hen F Dell BP Diastolic 2017-11-29 14:31:00 88 mm[Hg] Morteza phen Deisy Sharpe Weight Measured 2017-11-29 14:31:00 218.60 pounds Oli Sharpe Height Measured 2017-11-29 14:31:00 69.00 inches Oli Sharpe Body Temperature 2017-11-29 14:31:00 98.20 degrees Oli Sharpe Heart Rate 2017-11-29 14:31:00 85.00 /min Beena en F Dell Respiratory Rate 2017-11-29 14:31:00 12.00 /min Oli Sharpe BP Systolic 2016-04-26 13:50:00 130 mm[Hg] Step hen Deisy Sharpe BP Diastolic 2016-04-26 13:50:00 90 mm[Hg] Morteza phen Deisy Sharpe Weight Measured 2016-04-26 13:50:00 222.00 pounds Oli Sharpe Height Measured 2016-04-26 13:50:00 69.00 inches Oli Sharpe Body Temperature 2016-04-26 13:50:00 97.90 degrees Oli Sharpe Heart Rate 2016-04-26 13:50:00 83.00 /min Beena en Deisy Sharpe Respiratory Rate 2016-04-26 13:50:00 15.00 /min Oli Sharpe Encounters Start Date/Time End Date/Time Encounter Type Admission Type Attending [facility] Care Department Encounter ID Source 2023-10-28 13:42:17 2023-10-28 13:42:[address] [facility] [id number] Oli Sharpe 2023-10-28 00:00:00 2023-10-28 00:00:[address] [facility] [id number] Oli Sharpe Results Test Description Test Time Test Comments Results Result Co mments Source Oli SharpeNOTE: [ADDED]2020-03-30 00:00:00* Test Item Value Reference Range Interpretation Comme nts NOTE: (test code = 998) (NOTE) Oli SharpeTRICHOMONAS, MALE [ADDED]2020-03-30 00:00:00* Test Item Value Reference Range Interpretation Comme nts TRICHOMONAS, MALE (test code = 63240) NEGATIVE SOURCE (test code = 33093) URINE Oli SharpePROTIME AND [id number] 00:00:00* Test Item Value Reference Range Interpretation Comme nts PROTHROMBIN TIME (PT) (test code = 1402) 13.9 SECONDS INR (test code = 97171) 1.0 PTT (test code = 1403) 35.1 SECONDS [facility] [id number] 00:00:00* Test Item Value Reference Range Interpretation Comme nts WBC (test code = 1001) 5.4 K/UL RBC (test code = 1002) 5.43 M/UL HEMOGLOBIN (test code = 1003) 15.0 G/DL HEMATOCRIT (test code = 1004) 44.7 % MCV (test code = 1005) 82.3 fL MCH (test code = 1006) 27.6 PG MCHC (test code = 1007) 33.6 G/DL RDW (test code = 1038) 13.2 % NEUTROPHILS (test code = 1008) 60.0 % LYMPHOCYTES (test code = 1010) 26.2 % MONOCYTES (test code = 1011) 11.4 % EOSINOPHILS (test code = 1012) 2.0 % BASOPHILS (test code = 1013) 0.4 % PLATELET COUNT (test code = 1015) 217 K/UL Oli Deisy DellBASI METABOLIC [id number] 00:00:00* Test Item Value Reference Range Interpretation Comme nts GLUCOSE (test code = 2217) 104 MG/DL BUN (test code = 2208) 16 MG/DL CREATININE (test code = 2214) 0.99 MG/DL eGFR AMER. (test cod e = 91218) 98 ML/MIN/1.73 eGFR NON- AMER. (test code = 29213) 84 ML/MIN/1.73 SODIUM (test code = 2231) 142 MEQ/L POTASSIUM (test code = 2228) 5.0 MEQ/L CHLORIDE (test code = 2215) 102 MEQ/L CARBON DIOXIDE (test code = 2206) 28 MEQ/L CALCIUM (test code = 2209) 9.5 MG/DL Oli Bardales Date/Time Note Provider Source 2023-10-28 00:00:00 [id number] T00:00:00+ + +| Plan Activity | Plan Date |+ + +| Control portions , manage weight | 2016-05-10 || Increase Exercise to 3-5 times a week for at least 45 minutes | || High Fiber Low Calorie Diet Reduce Carbohydrates | || Increase Vegetables 5-6 small healthy meals a day | || Discussed the risks involved in increasing weight and insulin resistance | |+ + +| Preop clearance requested by Fatemeh Rodriguez ,orthopedist for Anterior | 2017-11-29 || cervical Disectomy/Fusion ,c4-c5,c5-c6, c6- c7 ,under General anesthesia. | || Surgery scheduled on 01/10/18. | || No history of cardiac or Pulmonary problems or any other chronic issues except | || for current problem for which he will be under going Surgery. | || Patient is not on any medicines ,except for pain meds. prn. | || EKG - NSR. | || Labs requested by surgeon - CBC,BMP ,PT & INR - unremarkable ,except for | || glucose 104. | || Check HBa1c & sugar x 3-4 wks. | || Chest Xray will be done thru surgeon's office . | || Colonoscopy - last yr per patient unremarkable. | || PSA - last yr - per patient unremarkable. | || Patient has been seen in this office only once before - 2015. | || Per pt. he had a left shoulder surgery few yrs ago under GA & he did fine. | || Patient doesn't have much risk factors ,except for his BMI > 30. | || He is cleared for surgery. | || Patient is a low risk in view of all the above mentioned. | || Healthy diet & daily exercise suggested. | || F/U x 1-2 wks prn | |+ + +| Us of left side of neck | 2019-02-01 || SE discussed. take as prescribed. | || avoid alcohol while on antibiotic | || proper hand hygiene | || warm compresses to site | || RTO if symptoms persist or worsen | |+ + +| Recommend healthy eating with foods from a variety of food groups. Encourage to | 2019-02-01 || eat more vegetables and appropriate portion sizes, and few sugary | || snacks/drinks/sodas | |+ + +| POC Urinalysis - see attached results | 2020-03-21 || Labs: BMP, G/C & Trichomonisis | || Send urine for culture | || Start Macrobid empirically | || Increase water intake | || Education on proper wiping - front to back | || Wear cotton panties / No bubble baths or perfumes/powders to area | || Avoid food and drinks that irritate the bladder | || Plan pending diagnostic results | |+ + +| Labs: G/C & Trichomonisis | 2020-03-21 || Abstain from sexual intercourse until diagnostic tests are resulted. | |+ + +| Discussed need for weight loss and increase in activity including exercise and | 2020-03-21 || healthier diet of low fat meats and foods, increase vegetables, and low sugar | || fruit. | |+ + +| Recommend healthy eating with foods from a variety of food groups, appropriate | 2020-03-21 || portion sizes, and few sugary snacks/drinks. | || Increase wt intake to half body weight. | || limit sodium, pastas, breads, increase vegetable intake. | |+ + +| Daily exercise for 20-30 minutes like swimming, cycling, dancing, fast pace | 2020-03-21 || walking. | || | || Discussed daily exercise/play/activity as part of a healthy lifestyle. | || Encourage 60 mins or more of moderate to vigorous intensity physical activity | || daily including | || aerobic, muscle strengthening, and bone strengthening. | |+ + +| Weight inappropriate for height. Follow dietary/exercise recommendations. | 2022-03-15 |+ + +| Patient with 4-5 times/night and throughout the day. | 2023-10-28 || Check PSA | || Reviewed all prior labs as noted in chart | || Patient wants a referral to Urology. Will complete s/p PSA results | || Discussed with the patient regarding treatments but he wants to hold off until | || seen by Urology. | |+ + +| Patient is unable to tolerate the statins including Lipitor. | 2023-10-28 || He state at this time he doesn't want to start any medications for his lipids | || He will do lifestyle modifications. | |+ + +[id number] of TreatmentLNCARE TEMPLETON DEVELOPMENTAL CENTERFA|[id number] for patient [id number] Section NarrativeNARRATIVEFormatted C-CDA narrative textSFAStphan [facility]2024-05-01T00:00:00 Oli [facility]"
[2023-11-21] MEDS ORDERED: NA CHLORIDE 0.9% 1,000 ML ONE (01:13)
[2023-11-21] MEDS ORDERED: predniSONE 20 MG TAB ONE (01:13)
[2023-11-21 01:35] LABS: SARS-CoV-2 Antigen CONTROL BLUE LINE VIS/BG OK; SARS-CoV-2 Antigen Rapid Res Negative (Negative)
--- NOTE | 2023-11-21 04:13 | EDPHYS ---
Physician Documentation [facility] Name: Danilo Noguera Jr Age: 63 yrs Sex: Male : 1960 Arrival Date: 11/21/2023 Time: 00:17 Bed 6 Private MD: ED Physician Mani Dawson HPI: 11/20 01:03 This 63 yrs old Male presents to ER via Unassigned with complaints of Flu Symptoms. sb4 01:03 cough, sore throat, chills, sweats, sinus congestion x 2 days. been taking tylenol and sb4 nyquil without relief in symptoms. states his HR has been elevated just resting. son has been sick with similar symptoms. no reported nausea, vomiting, or diarrhea. no chest pain or shortness of breath. Historical: - Allergies: 01:05 No Known Allergies; vc1 - Home Meds: 01:05 None [Active]; vc1 - PMHx: 01:05 None; vc1 - PSHx: 01:05 None; vc1 - Immunization history:: Client reports receiving the 2nd dose of the Covid vaccine, Flu vaccine is up to date. - Infectious Disease History:: Denies. - Social history:: Smoking status: Patient denies any tobacco usage or history of. ROS: 01:03 Abdomen/GI: Negative for abdominal pain, nausea, vomiting, diarrhea, and constipation, sb4 01:03 Constitutional: Positive for body aches, chills, 01:03 ENT: Positive for sinus congestion, sore throat, 01:03 Respiratory: Positive for cough, 01:03 All other systems are negative, Exam: 01:03 Constitutional: This is a well developed, well nourished patient who is awake, alert, sb4 and in no acute distress. Head/Face: Normocephalic, atraumatic. Eyes: Extra-ocular motions intact. Periorbital areas with no swelling, redness, or edema. ENT: Mucous membranes moist. Cardiovascular: Regular rate and rhythm with a normal S1 and S2. Respiratory: Lungs have equal breath sounds bilaterally, clear to auscultation and percussion. No rales, rhonchi or wheezes noted. No increased work of breathing, no retractions or nasal flaring. Abdomen/GI: Soft, non-tender, no distension. Skin: Warm, dry with normal turgor. Normal color with no rashes, no lesions, and no evidence of cellulitis. MS/ Extremity: Pulses equal, no cyanosis. Neurovascular intact. Full, normal range of motion. Neuro: Awake and alert, GCS 15, oriented to person, place, time, and situation. Motor strength 5/5 in all extremities. Sensory grossly intact. Vital Signs: 01:01 BP 141 / 84; Pulse 97; Resp 18; Temp 99.4; Pulse Ox 97% ; Weight 97.52 kg; Height 5 ft. vc1 7 in. ; Pain 0/10; 03:41 BP 121 / 82; Pulse 82; Resp 16; Temp 98.1; Pulse Ox 97% on R/A; Pain 0/10; bm8 04:26 BP 125 / 82; Pulse 83; Resp 18; Temp 98.1; Pulse Ox 98% on R/A; Pain 0/10; bm8 01:01 Body Mass Index 33.67 (97.52 kg, 170.18 cm) vc1 01:01 Pain Scale: Adult vc1 03:41 Pain Scale: Adult bm8 04:26 Pain Scale: Adult bm8 [place] Coma Score: 03:41 Eye Response: spontaneous(4). Motor Response: obeys commands(6). Verbal Response: bm8 oriented(5). Total: 15. 04:26 Eye Response: spontaneous(4). Motor Response: obeys commands(6). Verbal Response: bm8 oriented(5). Total: 15. MDM: 00:57 Patient medically screened. sb4 04:04 ED course: CLINICAL HISTORY: Congestion;Chest pain;Cough COMPARISON: None. TECHNIQUE: sp4 XR CHEST 2 VIEWS 11/21/2023 1:03 AM CDT FINDINGS: Cardiac silhouette is normal in size. Lungs are clear without consolidation, atelectasis, mass or edema. There is no pleural effusion. There is no pneumothorax. There are no acute osseous findings. IMPRESSION: Clear lungs. . 04:32 Differential Diagnosis altered mental status, sepsis, flu. Data reviewed: vital signs, sp4 nurses notes, lab test result(s), Flu: negative radiologic studies, plain films. ED course: Patient is stable for discharge home. 11/20 01:03 Order name: SARS RAPID; Complete Time: 04:03 sb4 11/20 01:03 Order name: Flu; Complete Time: 04:03 sb4 11/20 01:03 Order name: Strep; Complete Time: 04:03 sb4 11/20 01:43 Order name: Throat Culture EDMS 11/20 01:03 Order name: Chest Pa And Lat (2 Views) XRAY; Complete Time: 13:19 sb4 11/20 01:03 Order name: IV Start; Complete Time: 01:21 sb4 Administered Medications: 01:21 Drug: predniSONE PO 40 mg PO once Route: PO; bm8 02:10 Follow up: Response: No adverse reaction bm8 01:21 Drug: NS 0.9% IV 1000 ml IV at 1 bolus Per protocol; 1000 mL bolus Route: IV; Rate: 1 bm8 bolus; Site: right antecubital; 03:23 Follow up: Response: No adverse reaction; IV Status: Completed infusion; IV Intake: bm8 1000ml 04:25 Drug: AZITHromycin PO 500 mg PO once Route: PO; bm8 04:26 Follow up: Response: Medication administered at discharge. bm8 04:25 Drug: Dextromethorphan-Guaifenesin PO Liquid 10 mg-100 mg/5 mL 10 ml PO once Route: PO; bm8 04:26 Follow up: Response: Medication administered at discharge. bm8 04:25 Drug: Ibuprofen PO 800 mg PO once Route: PO; bm8 04:25 Follow up: Response: Medication administered at discharge. bm8 04:25 Drug: diphenhydrAMINE PO 25 mg PO once Route: PO; bm8 04:25 Follow up: Response: Medication administered at discharge. bm8 Disposition: 04:10 Co-signature as Attending Physician, Mani Dawson MD I agree with the assessment sp4 and plan of care. I reviewed the patient's care provided by Advanced Practice Provider \T\ agree w/ the diagnosis \T\ care plan. I personally saw the pt \T\ performed a substantive portion of the visit, incldng all aspects of the (History/Exam/Medical Decision Making). 13:19 Chart complete. sb4 Disposition Summary: 11/21/23 04:12 Discharge Ordered Notes: Location: Home sp4 Problem: new sp4 Symptoms: have improved sp4 Condition: Stable sp4 Diagnosis - Acute upper respiratory infection, unspecified sp4 - Acute tonsillitis, unspecified sp4 Followup: sp4 - With: Private Physician - When: 7 - 10 days - Reason: Recheck today's complaints Discharge Instructions: - Discharge Summary Sheet sp4 - Tonsillitis, [id number] sp4 Forms: - Patient Portal Instructions sp4 Prescriptions: - dextromethorphan-guaifenesin 60-1,200 mg Oral Tablet, Extended Release 12 hr - take 1 tablet ORAL route every 12 hours PRN cough; 28 tablet; Refills: 0, sp4 Product Selection Permitted - Ibuprofen 800 mg Oral Tablet - take 1 tablet ORAL route every 8 hours As needed take with food; 30 tablet; sp4 Refills: 0, Product Selection Permitted - Zithromax Z-Sergo 250 mg Oral Tablet - take 1 tablet ORAL route as directed for 5 days Day 1 - take two (2) tablets sp4 one time. Day 2, 3, 4 , 5 take one (1) tablet once daily.; 6 tablet; Refills: 0, Product Selection Permitted - promethazine 25 mg Oral tablet - take 1 tablet ORAL route every 6 hours As needed; 30 tablet; Refills: 0, sp4 Product Selection Permitted Signatures: Dispatcher [employer] Jesica Henson RN RN vc1 Grace Christianson PAGenia PAMisbahC sb4 Mani Dawson MD MD sp4 Roni Hernandez RN RN bm8
--- NOTE | 2023-11-21 04:13 | ER ---
Nurse's Notes [facility] Name: Danilo Noguera Jr Age: 63 yrs Sex: Male : 1960 Arrival Date: 11/21/2023 Time: 00:17 Bed 6 Private MD: Diagnosis: Acute upper respiratory infection, unspecified;Acute tonsillitis, unspecified Presentation: 11/20 01:01 Chief complaint: Patient states: cold chills, high pulse, sore throat times 2 days. vc1 Coronavirus screen: Vaccine status: Patient reports receiving the 2nd dose of the covid vaccine. Client denies travel out of the [place] in the last 14 days. chills, congestion, cough unrelated to allergies, fever, sore throat, Client presents with at least one sign or symptom that may indicate coronavirus-19. Ebola Screen: Patient negative for fever greater than or equal to 101.5 degrees Fahrenheit, and additional compatible Ebola Virus Disease symptoms Patient denies exposure to infectious person. Patient denies travel to an Ebola-affected area in the 21 days before illness onset. No symptoms or risks identified at this time. Initial Sepsis Screen: Does the patient meet any 2 criteria? No. Patient's initial sepsis screen is negative. Does the patient have a suspected source of infection? No. Patient's initial sepsis screen is negative. Risk Assessment: Do you want to hurt yourself or someone else? Patient reports no desire to harm self or others. Onset of symptoms was November 19, 2023. 01:01 Method Of Arrival: Ambulatory vc1 01:01 Acuity: CHRISTA 4 vc1 Triage Assessment: 01:06 General: Appears in no apparent distress. Behavior is calm, cooperative, appropriate vc1 for age. Pain: Complains of pain in throat and chest Pain does not radiate. Pain currently is 6 out of 10 on a pain scale. Quality of pain is described as sharp, Pain began suddenly, 2-3 days ago. Is continuous, episodic. Neuro: Level of Consciousness is awake, alert, obeys commands, Oriented to person, place, time, situation, Appropriate for age. Cardiovascular: Heart tones S1 S2 Capillary refill < 3 seconds Patient's skin is warm and dry. Respiratory: Reports cough that is Airway is patent Respiratory effort is even, unlabored, Respiratory pattern is regular, symmetrical, Breath sounds are clear bilaterally. Historical: - Allergies: 01:05 No Known Allergies; vc1 - Home Meds: 01:05 None [Active]; vc1 - PMHx: 01:05 None; vc1 - PSHx: 01:05 None; vc1 - Immunization history:: Client reports receiving the 2nd dose of the Covid vaccine, Flu vaccine is up to date. - Infectious Disease History:: Denies. - Social history:: Smoking status: Patient denies any tobacco usage or history of. Screenin:06 [facility] ED Fall Risk Assessment (Adult) History of falling in the last 3 months, vc1 including since admission No falls in past 3 months (0 pts) Confusion or Disorientation No (0 pts) Intoxicated or Sedated No (0 pts) Impaired Gait No (0 pts) Mobility Assist Device Used No (0 pt) Altered Elimination No (0 pt) Score/Fall Risk Level 0 - 2 = Low Risk Oriented to surroundings, Maintained a safe environment, Educated pt \T\ family on fall prevention, incl call for assistance when getting out of bed. Abuse screen: Denies threats or abuse. Nutritional screening: No deficits noted. Tuberculosis screening: No symptoms or risk factors identified. Assessment: 03:41 Reassessment: Patient appears in no apparent distress at this time. Patient and/or bm8 family updated on plan of care and expected duration. Pain level reassessed. Patient is alert, oriented x 3, equal unlabored respirations, skin warm/dry/pink. Patient denies pain at this time. Patient states feeling better. Patient states symptoms have improved. General: Appears in no apparent distress. comfortable, Behavior is calm, cooperative, appropriate for age. Pain: Denies pain. Neuro: No deficits noted. Level of Consciousness is awake, alert, obeys commands, Oriented to person, place, time, situation, Appropriate for age. Cardiovascular: No deficits noted. Denies chest pain, lightheadedness, shortness of breath, Heart tones S1 S2 present Capillary refill < 3 seconds Patient's skin is warm and dry. Rhythm is sinus rhythm. Respiratory: No deficits noted. Reports cough that is productive, Airway is patent Trachea midline Respiratory effort is even, unlabored, Respiratory pattern is regular, symmetrical, Breath sounds are clear bilaterally. GI: No deficits noted. No signs and/or symptoms were reported involving the gastrointestinal system. : No deficits noted. No signs and/or symptoms were reported regarding the genitourinary system. EENT: No deficits noted. No signs and/or symptoms were reported regarding the EENT system. Derm: No deficits noted. No signs and/or symptoms reported regarding the dermatologic system. Musculoskeletal: No deficits noted. No signs and/or symptoms reported regarding the musculoskeletal system. 04:26 Reassessment: Patient appears in no apparent distress at this time. Patient and/or bm8 family updated on plan of care and expected duration. Pain level reassessed. Patient is alert, oriented x 3, equal unlabored respirations, skin warm/dry/pink. Patient denies pain at this time. Patient states feeling better. Patient states symptoms have improved. Vital Signs: 01:01 BP 141 / 84; Pulse 97; Resp 18; Temp 99.4; Pulse Ox 97% ; Weight 97.52 kg; Height 5 ft. vc1 7 in. ; Pain 0/10; 03:41 BP 121 / 82; Pulse 82; Resp 16; Temp 98.1; Pulse Ox 97% on R/A; Pain 0/10; bm8 04:26 BP 125 / 82; Pulse 83; Resp 18; Temp 98.1; Pulse Ox 98% on R/A; Pain 0/10; bm8 01:01 Body Mass Index 33.67 (97.52 kg, 170.18 cm) vc1 01:01 Pain Scale: Adult vc1 03:41 Pain Scale: Adult bm8 04:26 Pain Scale: Adult bm8 [place] Coma Score: 03:41 Eye Response: spontaneous(4). Motor Response: obeys commands(6). Verbal Response: bm8 oriented(5). Total: 15. 04:26 Eye Response: spontaneous(4). Motor Response: obeys commands(6). Verbal Response: bm8 oriented(5). Total: 15. ED Course: 00:20 Patient arrived in ED. mr 00:57 Grace Christianson PA-C is PHCP. sb4 00:57 Mani Dawson MD is Attending Physician. sb4 01:05 Triage completed. vc1 01:05 Arm band placed on left wrist. vc1 01:06 Patient has correct armband on for positive identification. Bed in low position. Call vc1 light in reach. Pulse ox on. NIBP on. 01:09 Roni Hernandez, RN is Primary Nurse. bm8 01:09 Inserted saline lock: 18 gauge in right antecubital area, using aseptic technique. bm8 Blood collected. 01:21 Client placed on continuous cardiac and pulse oximetry monitoring. NIBP monitoring bm8 applied. Door closed. Noise minimized. Visitors limited. Lights dimmed. Verbal reassurance given. 01:21 Initial lab(s) drawn, by me, sent to lab. COVID swab sent to lab. Flu and/or RSV swab bm8 sent to lab. Strep swab sent to lab. 01:42 Chest Pa And Lat (2 Views) XRAY In Process Unspecified. EDMS 03:41 Provided Education on: post er care. bm8 03:41 No provider procedures requiring assistance completed. bm8 04:26 IV discontinued, intact, bleeding controlled, No redness/swelling at site. Pressure bm8 dressing applied. Administered Medications: 01:21 Drug: predniSONE PO 40 mg PO once Route: PO; bm8 02:10 Follow up: Response: No adverse reaction bm8 01:21 Drug: NS 0.9% IV 1000 ml IV at 1 bolus Per protocol; 1000 mL bolus Route: IV; Rate: 1 bm8 bolus; Site: right antecubital; 03:23 Follow up: Response: No adverse reaction; IV Status: Completed infusion; IV Intake: bm8 1000ml 04:25 Drug: AZITHromycin PO 500 mg PO once Route: PO; bm8 04:26 Follow up: Response: Medication administered at discharge. bm8 04:25 Drug: Dextromethorphan-Guaifenesin PO Liquid 10 mg-100 mg/5 mL 10 ml PO once Route: PO; bm8 04:26 Follow up: Response: Medication administered at discharge. bm8 04:25 Drug: Ibuprofen PO 800 mg PO once Route: PO; bm8 04:25 Follow up: Response: Medication administered at discharge. bm8 04:25 Drug: diphenhydrAMINE PO 25 mg PO once Route: PO; bm8 04:25 Follow up: Response: Medication administered at discharge. bm8 Medication: 01:06 VIS not applicable for this client. vc1 Intake: 03:23 IV: 1000ml; Total: 1000ml. bm8 Outcome: 04:12 Discharge ordered by sp4 04:26 Discharged to home ambulatory, bm8 04:26 Condition: stable 04:26 Discharge instructions given to patient, Instructed on discharge instructions, follow up and referral plans. no drinking with medication, medication usage, safety practices, Demonstrated understanding of instructions, follow-up care, medications, Prescriptions given X 4, 04:27 Patient left the ED. bm8 Signatures: Dispatcher [employer] EDNV Wilmer Monika, Reg Reg mr AlinamarioJesica, RN RN vc1 Grace Christianson, PAGenia PAGenia [email or web address] Mani Dawson MD MD sp4 Roni Hernandez, RN RN bm8
[2023-11-21] MEDS ORDERED: IBUPROFEN 400 MG TAB ONE (04:18)
[2023-11-21] MEDS ORDERED: AZITHROMYCIN 250 MG TAB ONE (04:18)
[2023-11-21] MEDS ORDERED: GUAIFENESIN/DM 5 ML UCUP ONE (04:19)
[2023-11-21] MEDS ORDERED: DIPHENHYDRAMINE 25 MG TAB/CAP ONE (04:19)
[2023-11-21 04:40] VITALS: BP 125/82; TEMP 98.1; O2SAT 98
--- NOTE | 2023-11-21 11:53 | RAD REPORT ---
EXAM DESCRIPTION: XR CHEST 2 VIEWS CLINICAL HISTORY: Congestion;Chest pain;Cough COMPARISON: None. TECHNIQUE: XR CHEST 2 VIEWS 11/21/2023 1:03 AM CDT FINDINGS: Cardiac silhouette is normal in size. Lungs are clear without consolidation, atelectasis, mass or edema. There is no pleural effusion. There is no pneumothorax. There are no acute osseous fin dings. IMPRESSION: Clear lungs. Electronically signed by: Bj Ha MD 11/21/2023 03:16 AM CDT Due to temporary technical issues with the PACS/Fluency reporting system, reports are being signed by the in house radiologist without review as a courtesy to ensure prompt reporting. The interpreting r adiologist is fully responsible for the content of the report.
== END 2023-11-21 04:27 | disposition home or self-care (01) ==
LOC: ER 00:17
DX: J06.9 Acute upper respiratory infection, unspecified (principal); J03.90 Acute tonsillitis, unspecified; Z11.52 Encounter for screening for COVID-19
CPT/HCPCS: 96361; 87070; 36415; 87081; 87804 ×2; 71046; 96360; 99284; 87811; J7512; J7030

== ENCOUNTER 2024-05-08 15:19 | Emergency (ER) | payer OTHER ==
[2024-05-08] MEDS ORDERED: MORPHINE 4 MG/ML SYR ONE (17:20)
--- NOTE | 2024-05-08 17:33 | RAD REPORT ---
EXAMINATION: Stone Protocol CLINICAL INDICATION: Abdominal pain. Back pain TECHNIQUE: CT abdomen and pelvis was performed, without IV contrast, as per department protocol. Oral contrast not given. Axial, sagittal and coronal reconstructions were obtained. One or more of the following dose reduction techniques were used: Automated exposure control, adjustment of the mA and k V according to the patient size, and iterative reconstruction. Unless otherwise specified, incidental findings do not require dedicated imaging follow-up. COMPARISON: No prior exam. FINDINGS: The lack of intravenous and oral contrast limits the sensitivity of this exam for evaluation of solid visceral organs, vascular structures, and bowel A renal calculus not seen. No ureteral calculus. A bladder calculus not noted. No hydronephrosis Multiple hepatic cysts. The largest 4.9 cm within the lateral segment left lobe. Spleen, pancreas, adrenals and right kidney grossly normal. Parapelvic cyst left kidney. Normal appendix. Prostate gland moderately. Small right inguinal hernia No evidence of diverticulitis. IMPRESSION: No acute abnormalities displayed
[2024-05-08] MEDS ORDERED: dexAMETHasone 10 MG/ML VIAL ONE (17:47)
[2024-05-08 17:53] LABS: Specific Gravity 1.022 (1.005-1.030); Urine Bilirubin NEGATIVE (Negative); Urine Blood Negative (Negative); Urine Clarity Clear (Clear); Urine Color Light-Yellow (Yellow); Urine Glucose NEGATIVE (Negative); Urine Ketones NEGATIVE (Negative); Urine Microscopic Reflex YN NO UMIC; Urine Nitrite NEGATIVE (Negative); Urine Protein NEGATIVE (Negative); Urine Urobilinogen Normal (Normal)
--- NOTE | 2024-05-08 17:56 | EDPHYS ---
Physician Documentation [facility] Name: Danilo Noguera Jr Age: 64 yrs Sex: Male : 1960 Arrival Date: 05/08/2024 Time: 15:19 Bed 25 Private MD: ED Physician Chace Allen HPI: 05/08 15:42 This 64 yrs old Male presents to ER via Ambulatory with complaints of Fall Injury. cp 15:42 Details of fall: The patient fell from an upright position, while walking. cp 15:42 Onset: The symptoms/episode began/occurred 2 day(s) ago. cp 15:42 Associated injuries: The patient sustained injury to the low back, pain, pain with cp movement. Severity of symptoms: in the emergency department the symptoms are unchanged, despite home interventions. Historical: - Allergies: 15:28 No Known Allergies; ap3 - PMHx: 15:28 Hypertensive disorder; ap3 - Immunization history:: Client reports receiving the 2nd dose of the Covid vaccine, Flu vaccine is up to date. - Infectious Disease History:: Denies. - Social history:: Smoking status: Patient denies any tobacco usage or history of. ROS: 15:45 Back: Positive for pain at rest, pain with movement, of the right mid back and right cp low back, 15:45 Constitutional: Negative for body aches, chills, fever, poor PO intake, cp 15:45 Eyes: Negative for injury, pain, redness, and discharge, cp 15:45 Cardiovascular: Negative for chest pain, edema, palpitations, 15:45 Respiratory: Negative for cough, shortness of breath, wheezing, 15:45 Abdomen/GI: Negative for nausea, vomiting, and diarrhea, anorexia, bowel incontinence, 15:45 : Negative for urinary symptoms, bladder incontinence, testicular pain 15:45 All other systems are negative, Exam: 15:50 Constitutional: The patient appears in no acute distress, alert, awake, non-toxic, well cp developed, well nourished, uncomfortable, 15:50 Head/Face: Normocephalic, atraumatic. cp 15:50 Chest/axilla: Inspection: normal, 15:50 Cardiovascular: Rate: normal, Rhythm: regular, 15:50 Respiratory: the patient does not display signs of respiratory distress, Respirations: normal, no use of accessory muscles, no retractions, labored breathing, is not present, Breath sounds: are clear throughout, no decreased breath sounds, no stridor, no wheezing, 15:50 Abdomen/GI: Inspection: abdomen appears normal, Palpation: abdomen is soft and non-tender, in all quadrants, 15:50 Back: pain, that is moderate, of the right mid back and right low back, ROM is painful, with all movement, 15:50 Musculoskeletal/extremity: Extremities: all appear grossly normal, with no appreciated pain with palpation, 15:50 Skin: cellulitis, is not appreciated, no rash present. 15:50 Neuro: Motor: moves all fours, no acute changes, Sensation: no acute changes, Gait: is steady, with use of cane, Vital Signs: 15:27 BP 134 / 95; Pulse 76; Resp 17; Temp 98.1; Pulse Ox 100% ; Weight 97.52 kg; Height 5 ap3 ft. 7 in. ; Pain 7/10; 18:23 BP 120 / 82; Pulse 61; Resp 18; Temp 98.1; Pulse Ox 98% on R/A; MAP 94 mmHg; Pain 4/10; tm6 15:27 Body Mass Index 33.67 (97.52 kg, 170.18 cm) ap3 15:27 Pain Scale: Adult ap3 18:23 Pain Scale: Adult tm6 MDM: 15:31 Medical Screening Exam initiated cp 17:00 Differential diagnosis: contusion, fracture, multiple trauma. 17:50 Data reviewed: vital signs, nurses notes, lab test result(s), radiologic studies, CT cp scan, and as a result, I will discharge patient. 17:55 I considered the following discharge prescriptions or medication management in the emergency department Medications were administered in the Emergency Department. See MAR. 17:55 Care significantly affected by the following chronic conditions: Hypertension. Counseling: I had a detailed discussion with the patient and/or guardian regarding the historical points, exam findings, and any diagnostic results supporting the discharge/admit diagnosis, lab results, radiology results, to return to the emergency department if symptoms worsen or persist or if there are any questions or concerns that arise at home. Response to treatment: the patient's symptoms have markedly improved after treatment, and as a result, I will discharge patient. 05/08 16:53 Order name: Urinalysis w/ reflexes 05/08 16:53 Order name: CT Stone Protocol; Complete Time: 17:36 cp 05/08 17:36 Interpretation: Report reviewed. cp Administered Medications: 17:26 Drug: morphine IM 4 mg IM once Route: IM; Site: right deltoid; tm6 18:25 Follow up: Response: No adverse reaction tm6 17:49 Drug: Dexamethasone IM 10 mg IM once Route: IM; Site: right gluteus; tm6 18:25 Follow up: Response: No adverse reaction tm6 Disposition Summary: 05/08/24 17:55 Discharge Ordered Notes: Location: Home cp Problem: new cp Symptoms: have improved cp Condition: Stable cp Diagnosis - Dorsalgia, unspecified cp Followup: cp - With: Private Physician - When: 2 - 3 days - Reason: Recheck today's complaints Discharge Instructions: - Discharge Summary Sheet cp - Acute Back Pain, Adult cp - Musculoskeletal Pain cp Forms: - Medication Reconciliation Form cp - Antibiotic Education cp - Prescription Opioid Use cp - Patient Portal Instructions cp - Leadership Thank You Letter cp Prescriptions: - Ibuprofen 800 mg Oral tablet - take 1 tablet ORAL route 2 times per day with meals As needed take with food; cp 30 tablet; Refills: 0, Product Selection Permitted - Medrol (Sergo) 4 mg Oral Tablets, Dose Pack - take 1 tablet ORAL route as directed - follow package instructions; 1 packet; cp Refills: 0, Product Selection Permitted - methocarbamol 750 mg Oral tablet - take 1 tablet ORAL route 3 times per day; 30 tablet; Refills: 0, Product cp Selection Permitted Signatures: Dispatcher [employer] Chace Little PA PA cp Aisha Nagy RN RN ap3 Concetta Key RN RN tm6
--- NOTE | 2024-05-08 17:56 | ER ---
Nurse's Notes [facility] Name: Danilo Noguera Jr Age: 64 yrs Sex: Male : 1960 Arrival Date: 05/08/2024 Time: 15:19 Bed 25 Private MD: Diagnosis: Dorsalgia, unspecified Presentation: 05/08 15:27 Chief complaint: Patient states: he fell 2 days ago, hitting his back and elbow. ap3 patient is complaining of continued back pain. patient currently rates his pain as a 7/10 on the pain scale. Coronavirus screen: At this time, the client does not indicate any symptoms associated with coronavirus-19. Ebola Screen: No symptoms or risks identified at this time. Initial Sepsis Screen: Does the patient meet any 2 criteria? No. Patient's initial sepsis screen is negative. Does the patient have a suspected source of infection? No. Patient's initial sepsis screen is negative. Risk Assessment: Do you want to hurt yourself or someone else? Patient reports no desire to harm self or others. Onset of symptoms was May 06, 2024. 15:27 Method Of Arrival: Ambulatory ap3 15:27 Acuity: CHRISTA 4 ap3 Triage Assessment: 15:29 General: Appears in no apparent distress. Behavior is calm, cooperative, appropriate ap3 for age. Pain: Complains of pain in back Pain currently is 7 out of 10 on a pain scale. Pain began 2-3 days ago. Neuro: Level of Consciousness is awake, alert, obeys commands, Oriented to person, place, time, situation, Appropriate for age. Cardiovascular: Patient's skin is warm and dry. Respiratory: Airway is patent Respiratory effort is even, unlabored, Respiratory pattern is regular, symmetrical. Historical: - Allergies: 15:28 No Known Allergies; ap3 - PMHx: 15:28 Hypertensive disorder; ap3 - Immunization history:: Client reports receiving the 2nd dose of the Covid vaccine, Flu vaccine is up to date. - Infectious Disease History:: Denies. - Social history:: Smoking status: Patient denies any tobacco usage or history of. Screenin:29 Abuse screen: Denies threats or abuse. Nutritional screening: No deficits noted. ap3 Tuberculosis screening: No symptoms or risk factors identified. 18:24 [facility] ED Fall Risk Assessment (Adult) History of falling in the last 3 months, tm6 including since admission No falls in past 3 months (0 pts) Confusion or Disorientation No (0 pts) Intoxicated or Sedated No (0 pts) Impaired Gait No (0 pts) Mobility Assist Device Used Yes (1 pt) Altered Elimination No (0 pt) Score/Fall Risk Level 0 - 2 = Low Risk Oriented to surroundings, Maintained a safe environment, Educated pt \T\ family on fall prevention, incl call for assistance when getting out of bed. Assessment: 17:20 General: Appears in no apparent distress. Behavior is calm, cooperative. Pain: tm6 Complains of pain in right low back and right mid back and back Pain currently is 8 out of 10 on a pain scale. Neuro: Level of Consciousness is awake, alert, obeys commands, Oriented to person, place, time, situation. Cardiovascular: Patient's skin is warm and dry. Respiratory: Airway is patent Respiratory effort is even, unlabored, Respiratory pattern is regular, symmetrical. GI: No signs and/or symptoms were reported involving the gastrointestinal system. Abdomen is flat, non-distended. : No signs and/or symptoms were reported regarding the genitourinary system. EENT: No signs and/or symptoms were reported regarding the EENT system. Derm: No signs and/or symptoms reported regarding the dermatologic system. Musculoskeletal: Reports pain in right low back and right mid back and back Pain is 8 out of 10 on a pain scale. 18:24 Reassessment: Patient and/or family updated on plan of care and expected duration. Pain tm6 level reassessed. Patient is alert, oriented x 3, equal unlabored respirations, skin warm/dry/pink. Vital Signs: 15:27 BP 134 / 95; Pulse 76; Resp 17; Temp 98.1; Pulse Ox 100% ; Weight 97.52 kg; Height 5 ap3 ft. 7 in. ; Pain 7/10; 18:23 BP 120 / 82; Pulse 61; Resp 18; Temp 98.1; Pulse Ox 98% on R/A; MAP 94 mmHg; Pain 4/10; tm6 15:27 Body Mass Index 33.67 (97.52 kg, 170.18 cm) ap3 15:27 Pain Scale: Adult ap3 18:23 Pain Scale: Adult tm6 ED Course: 15:22 Patient arrived in ED. mr 15:28 Triage completed. ap3 15:29 Arm band placed on right wrist. ap3 15:31 Chace Steven PA is PHCP. cp 15:31 Chace Allen MD is Attending Physician. cp 17:15 CT Stone Protocol In Process Unspecified. [facility] 17:18 Concetta Key, RN is Primary Nurse. tm6 17:20 Patient has correct armband on for positive identification. Bed in low position. Call tm6 light in reach. Side rails up X 1. Provided Education on: use of call huerta. Client placed on continuous cardiac and pulse oximetry monitoring. NIBP monitoring applied. Pulse ox on. NIBP on. Door closed. Noise minimized. Warm blanket given. Pillow given. 17:46 Urinalysis w/ reflexes Sent. tm6 18:24 No provider procedures requiring assistance completed. Patient did not have IV access tm6 during this emergency room visit. Administered Medications: 17:26 Drug: morphine IM 4 mg IM once Route: IM; Site: right deltoid; tm6 18:25 Follow up: Response: No adverse reaction tm6 17:49 Drug: Dexamethasone IM 10 mg IM once Route: IM; Site: right gluteus; tm6 18:25 Follow up: Response: No adverse reaction tm6 Medication: 18:25 VIS not applicable for this client. tm6 Outcome: 17:55 Discharge ordered by . cp 18:24 Discharged to home ambulatory, with friend, tm6 18:24 Condition: stable 18:24 Discharge instructions given to patient, Instructed on discharge instructions, follow up and referral plans. medication usage, Demonstrated understanding of instructions, follow-up care, medications, Prescriptions given X 3, 18:25 Patient left the ED. tm6 Signatures: Dispatcher [employer] [facility] Monika Guillen, Reg Reg mr Chace Steven PA PA cp Prokisch, Amanda RN RN ap3 Concetta Key, GUILLE RN tm6
[2024-05-08 21:14] VITALS: TEMP 98.1
[2024-05-08 21:15] VITALS: BP 120/82; O2SAT 98
== END 2024-05-08 18:25 | disposition home or self-care (01) ==
LOC: ER 15:19
DX: M54.9 Dorsalgia, unspecified (principal); M54.50 Low back pain, unspecified
CPT/HCPCS: 81003; 76377; 74176; 96372; 99284; J1100

== ENCOUNTER 2024-12-12 15:53 | Emergency (ER) | payer OTHER ==
[2024-12-12] MEDS ORDERED: TETRACAINE HCL 0.5% 4ML OPTH ONE (17:28)
--- NOTE | 2024-12-12 17:48 | ER ---
Nurse's Notes [facility] Name: Danilo Noguera Age: 64 yrs Sex: Male : 1960 Arrival Date: 12/12/2024 Time: 15:53 Bed 25 Private MD: Diagnosis: Other mucopurulent conjunctivitis, left eye Presentation: 12/12 16:10 Chief complaint: Patient states: cutting grass yesterday and got something in his left me1 eye. Tried to flush it out but wasn't able to. Pain to left eye "5/10", eye is watering and sensitive to light. Coronavirus screen: Vaccine status: Patient reports receiving the 2nd dose of the covid vaccine. Ebola Screen: No symptoms or risks identified at this time. Initial Sepsis Screen: Does the patient meet any 2 criteria? No. Patient's initial sepsis screen is negative. Does the patient have a suspected source of infection? No. Patient's initial sepsis screen is negative. Risk Assessment: Do you want to hurt yourself or someone else? Patient reports no desire to harm self or others. Onset of symptoms was December 11, 2024. 16:10 Method Of Arrival: Ambulatory me1 16:10 Acuity: CHRISTA 4 me1 Historical: - Allergies: 16:12 No Known Allergies; me1 - PMHx: 16:12 Hypertensive disorder; me1 - PSHx: 16:12 neck surgery (Hypertensive disorder); me1 - Immunization history:: Adult Immunizations up to date. - Infectious Disease History:: Denies. - Social history:: Smoking status: Patient denies any tobacco usage or history of. Vital Signs: 16:10 BP 138 / 84; Pulse 71; Resp 16; Temp 98.1; Pulse Ox 97% ; Weight 97.52 kg; Height 5 ft. me1 7 in. ; Pain 5/10; 16:10 Body Mass Index 33.67 (97.52 kg, 170.18 cm) me1 16:10 Pain Scale: Adult me1 ED Course: 15:55 Patient arrived in ED. im 16:03 N[facility] Pollack [facility]-C [facility] 16:03 Chace Allen MD is Attending Physician. dr5 16:12 Triage completed. me1 16:12 Arm band placed on Patient placed in an exam room. me1 17:35 Genevieve Montanez, RN is Primary Nurse. iw Administered Medications: No medications were administered Outcome: 17:48 Discharge ordered by . dr5 18:01 Patient left the ED. iw Signatures: Genevieve Montanez, RN RN Johanna Gibbs Michelle, RN RN me1 Nahum Pollack, BROADCAST CHIEF ENGINEER-C BROADCAST CHIEF ENGINEER-Cdr5
--- NOTE | 2024-12-12 17:48 | EDPHYS ---
Physician Documentation [facility] Name: Danilo Noguera Age: 64 yrs Sex: Male : 1960 Arrival Date: 12/12/2024 Time: 15:53 Bed 25 Private MD: ED Physician Chace Allen HPI: 12/12 18:27 This 64 yrs old Male presents to ER via Ambulatory with complaints of Eye dr5 Problem - left. 18:27 Onset: The symptoms/episode began/occurred yesterday. Patient is a 60-year-old male dr5 with history of hypertension coming in with left eye discomfort after mowing yard yesterday. Patient reports that he is unable to open his eye due to purulent drainage.. Historical: - Allergies: 16:12 No Known Allergies; me1 - PMHx: 16:12 Hypertensive disorder; me1 - PSHx: 16:12 neck surgery (Hypertensive disorder); me1 - Immunization history:: Adult Immunizations up to date. - Infectious Disease History:: Denies. - Social history:: Smoking status: Patient denies any tobacco usage or history of. ROS: 18:27 Constitutional: as per hpi dr5 Exam: 18:27 Visual Acuity: I have reviewed the nursing documentation. dr5 18:27 Constitutional: This is a well developed, well nourished patient who is awake, alert, and in no acute distress. Head/Face: Normocephalic, atraumatic. Neck: Trachea midline, no thyromegaly or masses palpated, and no cervical lymphadenopathy. Supple, full range of motion without nuchal rigidity, or vertebral point tenderness. No Meningismus. Chest/axilla: Normal chest wall appearance and motion. Nontender with no deformity. No lesions are appreciated. Cardiovascular: Regular rate and rhythm with a normal S1 and S2. Normal PMI, no JVD. No pulse deficits. Back: No spinal tenderness. No costovertebral tenderness. Full range of motion. Skin: Warm, dry with normal turgor. Normal color with no rashes, no lesions, and no evidence of cellulitis. MS/ Extremity: Pulses equal, no cyanosis. Neurovascular intact. Full, normal range of motion. Neuro: Awake and alert, GCS 15, oriented to person, place, time, and situation. Cranial nerves II-XII grossly intact. Motor strength 5/5 in all extremities. Sensory grossly intact. Cerebellar exam normal. Normal gait. 18:27 Eyes: Periorbital structures: appear normal, Pupils: no acute changes, Extraocular movements: no acute changes, Conjunctiva: Purulent discharge noted on eyelashes with reddened conjunctiva. Vital Signs: 16:10 BP 138 / 84; Pulse 71; Resp 16; Temp 98.1; Pulse Ox 97% ; Weight 97.52 kg; Height 5 ft. me1 7 in. ; Pain 5/10; 16:10 Body Mass Index 33.67 (97.52 kg, 170.18 cm) me1 16:10 Pain Scale: Adult me1 Procedures: 18:27 Eye Exam: Tetracaine. dr5 MDM: 16:04 Medical Screening Exam initiated dr5 18:27 Differential diagnosis: Corneal abrasion of Corneal ulcer of Data reviewed: vital dr5 signs, nurses notes. Care significantly affected by the following Social Determinants of Health: Poor access to healthcare and/or lack of insurance, Poor access to transportation, Problems related to employment. Counseling: I had a detailed discussion with the patient and/or guardian regarding the historical points, exam findings, and any diagnostic results supporting the discharge/admit diagnosis, the presence of at least one elevated blood pressure reading (>120/80) during this emergency department visit, the need for outpatient follow up, for definitive care, an opthalmologist, a family practitioner, to return to the emergency department if symptoms worsen or persist or if there are any questions or concerns that arise at home. Medication response: Tetracaine. Response to treatment: the patient's symptoms have resolved after treatment, the patient's condition has returned to base line. ED course: Tetracaine used and I flushed. Patient reports resolution of complaints. Purulent discharge and erythematous sclera concerning for bacterial conjunctivitis. Will cover with antibiotics. Recommended patient follow with primary care doctor or eye doctor this week for further management. All questions answered.. Administered Medications: No medications were administered Disposition Summary: 12/12/24 17:48 Discharge Ordered Notes: Location: Home dr5 Condition: Stable dr5 Diagnosis - Other mucopurulent conjunctivitis, left eye dr5 Followup: dr5 - With: Emergency Department - When: As needed - Reason: Worsening of condition Followup: dr5 - With: Private Physician - When: 1 - 2 days - Reason: Recheck today's complaints, Continuance of care, Re-evaluation by your physician Discharge Instructions: - Discharge Summary Sheet dr5 - Bacterial Conjunctivitis, Adult dr5 Forms: - Medication Reconciliation Form dr5 - Antibiotic Education dr5 - Patient Portal Instructions dr5 - Leadership Thank You Letter dr5 Prescriptions: - Ocuflox 0.3 % Ophthalmic Drops - instill 2 drops OPHTHALMIC route every 6 hours for 2 days; 15 milliliter; dr5 Refills: 0, Product Selection Permitted Addendum: 12/14/2024 19:20 Co-signature as Attending Physician, Chace Allen MD I agree with the assessment and c steele plan of care. Signatures: Chace Allen MD MD cha Eddleman, Michelle, RN RN me1 Nahum Pollack, NET ARCHITECT-C NET ARCHITECT-Cdr5
[2024-12-12 18:13] VITALS: BP 138/84; TEMP 98.1; O2SAT 97
== END 2024-12-12 18:01 | disposition home or self-care (01) ==
LOC: ER 15:53
DX: H10.022 Other mucopurulent conjunctivitis, left eye (principal)
CPT/HCPCS: 99281